=== PATIENT | male | born 1965 | race Caucasian/White ===

== ENCOUNTER 2019-01-15 06:14 | Inpatient (IN) | payer OTHER, MEDICAID, SELFPAY ==
[2019-01-12 12:52] VITALS: BMI 33.2
[2019-01-15] VITALS (22 sets, daily range): BP systolic 63–146; BP diastolic 37–89; PULSE 79–101; RESP 9–18; TEMP 36.1–36.9; O2SAT 92–97; BMI 31.8; BMI 33.5
--- NOTE | 2019-01-15 06:00 | DI.RAD.S_ITS ---
PROCEDURE: XR HIP W PEL IF DONE RT 2V INDICATIONS: removal of MICHAEL and spacer placement TECHNIQUE: AP pelvis with lateral view(s) of the right hip(s). COMPARISON: [facility], CR, XR PELVIS W LATERAL HIP RT, 06/17/2016, 9:34. [facility], CR, HIP 2V RIGHT, 04/15/2009, 12:08. FINDINGS: Bones: Interval removal of right hip arthroplasty components and replacement with acetabular component, new femoral component and cerclage wires. There is a minimally displaced fracture along the lateral femur and extending cranial to the greater tuberosity. Hip components appear congruent. Moderately severe arthritic changes seen in the left hip. Soft tissues: The visualized bowel gas pattern is normal. No suspicious soft tissue calcifications. Overlying skin gwen in particular drain are present. IMPRESSION: 1. Postsurgical changes in the right hip. 2. Minimally displaced lateral proximal femoral fracture. 3. Moderate to severe left hip osteoarthritis. Dictated by: Myrna Salgado M.D. on 01/15/2019 at 18:16 Approved by: Myrna Salgado M.D. on 01/15/2019 at 18:18
[2019-01-15] MEDS: LACTATED RINGERS 1,000 ML 42 ML IV ×6 (07:10→18:02)
[2019-01-15] MEDS: ACETAMINOPHEN 325 MG TABLET 975 MG PO ×2 (07:12→21:07)
[2019-01-15] MEDS: CELECOXIB 200 MG CAPSULE PO (07:12)
[2019-01-15] MEDS: PREGABALIN 75 MG CAPSULE PO (07:13)
[2019-01-15] MEDS: TRANEXAMIC ACID 1,000 MG VIAL 1000 MG INJ ×2 (08:30→16:03)
--- NOTE | 2019-01-15 09:21 | SUR.OPER ---
Lateral on padded OR bed. Gel axillary roll. Arms secured on padded armboard with pillow supporting top arm. Padded hip positioner braces x4 - anterior and posterior chest and pelvis. Additional gel pad used anterior pelvis. Gel pad under bottom leg from knee to foot and secured with tape over sheet.
[2019-01-15] MEDS: POVIDONE-IODINE 15 ML, SODIUM CHLORIDE 0.9% 250 ML TOP (09:40)
[2019-01-15] MEDS: BUPIVACAINE LIPOSOME 266 MG/20 ML VIAL INJ (09:47)
[2019-01-15] MEDS: BUPIVACAINE 0.25% W/ EPI 50 ML VIAL INJ (09:50)
[2019-01-15] MEDS: TOBRAMYCIN 1.2 GM VIAL INTRA-ARTI (10:27)
[2019-01-15] MEDS: VANCOMYCIN 1,000 MG VIAL 1000 MG TOP (10:37)
[2019-01-15] MEDS: CEFAZOLIN 2 GM/100 ML FROZ.PIGGY IV (10:50)
[2019-01-15] MEDS: VANCOMYCIN 1,000 MG/200 ML FROZ.PIGGY 200 MG IV (11:08)
[2019-01-15 11:53] LABS: Hematocrit 40.5 % (41-53); Hemoglobin 13.8 g/dL (13.5-17.5)
--- NOTE | 2019-01-15 17:37 | PM.OP.1 ---
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 He has a history of a total hip arthroplasty which was put in in about 2010. He developed an acute infection in 2016 and had an attempted DAIR procedure. He failed this and recently developed a sinus tract. His x-rays did show evidence of significant heterotopic ossification as well as some osteolysis along the medial femoral calcar. Surgeon: Vesna Jessica [employer] Qtp Tester: Jeana Jeffries Anesthesia Type: General and Spinal Operative Notes Findings: Obvious sinus tract with communication with the prosthesis. Multiple cultures sent. No evidence of loosening of the components. Densely adherent femoral prosthesis to the femur. Infected components removed without significant bone loss. Trochanteric osteotomy performed for removal of components. Good quality bone. Closure Type: primary Specimen(s): other (multiple cultures and PCR) Prosthetic devices, grafts, tissues, transplants, or devices: Biomet antibiotic spacer size 13, 56 mm head, +6 neck, 2 cables Applied: catheter and drain(s) Estimated Blood Loss (mL): 2,000 Blood products transfused: packed red blood cells Procedure in detail: The patient was seen in the pre-operative area, where the patient identified the right hip as the operative site and this was marked with my initials. The patient received pre-operative antibiotics and was taken to the operating room and placed on the operative table in the left lateral decubitus position after satisfactory anesthesia. A motion and time study teacher out was performed. The right leg was prepared from the ankle to the iliac crest with ChloroPrep in the usual fashion and draped through sterile drapes. The hip was approached through an approximately 24 cm incision centered over the greater trochanter and curving gently posteriorly as it went proximally. This was carried sharply to the fascia sidney, which was divided and retracted with a self retaining retractor. The patient had a sinus tract which was meticulously removed. The trochanteric bursa and a very extensive debridement was performed of inflamed and infectious appearing tissue was excised with care being taken to avoid the sciatic nerve, which was identified and protected throughout the case. There was severe heterotopic ossification in the gluteal tissues and in the acetabular region. I meticulously placed retractors around the acetabulum and hip and then carefully removed a significant amount of heterotopic ossification. This allowed visualization of the joint. The hip was dislocated without significant difficulty once the fairly extensive posterior heterotopic ossification had been removed. I also was very specific and meticulous about freeing the lateral shoulder of the hip prosthesis and further fraying the hip abductors in order to allow adequate mobilization and access to the proximal femur for femoral removal. Multiple long osteotomes were used around the proximal femur. I also used multiple Steinmann pins and K-wires to attempt to break the junction of the prosthesis and the femur free from the bone. I was able to thread the extraction device into the proximal femur pretty fairly easily. We then use multiple different extraction devices as well as multiple different mallets in order to attempt to remove the femur. The femur was clearly densely stuck and there was no evidence of loosening. I recheck the proximal femur and used to pass my osteotomes down to about the level of the ingrowth coating and then once again attempted to extract the femur. It was clear that the femur could not be removed without an osteotomy. A combination of an oscillating saw as well as a bur and drill bits were used to prep for a osteotomy. I brought in fluoro briefly to check and make sure that the planned osteotomy was down the stem and distal to the coding in order to make removal possible. Trochanteric osteotomy was performed. There was good visualization of the proximal lateral femur. We used combination of multiple osteotomes as well as oscillating saw to remove bone ingrowth and break up the bone prosthetic junction. The extraction device was reattached and it was clear that the femur could not be removed. Next a Gigli saw was used to go along the medial calcar portion of the prosthesis and I was able to see and use a Gigli saw and actually work it all the way down to about 3-4 mm of the proximal to the end of the ingrowth coating. Once again it was impossible to extract the femur. Next a combination of multiple K-wires Steinmann pins and the oscillating saw as well as multiple flexible osteotomes and some rigid osteotomes were used to further attempt to disrupt the prosthetic femoral interface. After very extensive and very tedious work eventually the prosthesis was removed by forceful pounding and when the prosthesis was examined it was noted that there was essentially no bone loss and no residual bony ingrowth except for about 2-3 mm on the most distal medial matted portion of the prosthesis. Retractors were placed to expose the acetabulum. The explant device was used to remove the acetabulum. There was minimal bone loss and essentially no residual bone remaining on the cup. I did remove a fairly extensive heterotopic ossification around the cup. He did appear to have an adequate residual anterior and posterior rim. I checked the size and it looked appropriate for a 56 mm head. The acetabulum was meticulously debrided removing any potential bio film and I also used a 56 Reamer to just touch the bone to attempt to remove any potentially infected bone or bio film. The femoral canal was reamed up to a 13 and a 13 Biomet broach was placed. It did appear to have adequate initial stability. The stem was reducible with a 56 head. A 13 mm spacer was made on the back table with tobramycin and vancomycin added to the gentamicin cement. Is floor during the procedure to make sure that I had gotten my K-wires distal to the tip of the femoral stem. And confirm that there were no fractures. A small amount of bone cement was placed along the medial calcar when the cemented femoral spacer was implanted. A trial reduction showed adequate caodaism of leg length and reasonable range of motion with 45 degrees internal rotation without dislocation. At 90 degrees flexion, internal rotation to 50 was possible before dislocation. A brief Betadine soak was performed while trialing with head options. Back to sugar was used prior to implanting the components and it was meticulously irrigated clean. The hip was meticulously irrigated with normal saline. Finally the femoral head was impacted onto the stem. The trochanteric osteotomy was meticulously repaired with 2 cables. The capsulomuscular flap was then repaired to soft tissue. A deep drain was placed and brought out anteriorly. The fascia sidney was closed with PDS. The subcutaneous layer was closed with barbed sutures and skin gwen. Any abnormal or nonviable tissue was debrided prior to closure.. A Kiki dressing was applied and the patient was taken to recovery having tolerated the procedure well. He was carefully monitored intraoperatively and given 2 U of packed RBCs. Complications: none Condition: stable Disposition: Acute Care Plan for aftercare: The patient will be maintained on a standard total hip replacement protocol with weight bearing 100 lbs. hip precautions. The patient will receive Aspirin and sequential compression devices for DVT prophylaxis. The patient will be discharged home when safe for the home environment. IV antibiotics for 6 weeks postoperatively. Check cultures and PCR. Coordination with infectious disease Dr. Cooper. Place a PICC line.
--- NOTE | 2019-01-15 17:49 | SUR.PHASEI ---
valuables pack given to
--- NOTE | 2019-01-15 18:02 | SUR.PHASEI ---
Upon arrival bp low, IV fluid increased and phenylephrine given by Dr. Domingo. bp increased. 1736 one ml phenylephrine given for low bp per Dr. Domingo verbal order to give med as needed if sbp drops lower than 90. bp increased 1806 Pt c/o lt eye irritation. Lt eye pink, teary. Eye wiped with wet wash cloth but pt denied improvement. Dr. Pisano notified and examined pt. Pt did express some improvement.
--- NOTE | 2019-01-15 18:30 | SUR.PHASEI ---
Report called to Akila.
--- NOTE | 2019-01-15 18:46 | SUR.PHASEI ---
Pt transferred to the floor with o2. Report to Akila. VS stable. O2 sat 95-96% 1lnc. Drsg cdi. HV drsg cdi but skin pink under drsg. IV saline locked. Bolus comlete. Belongings bag, green bag, cane and glasses with patient.
[2019-01-15] MEDS: LACTATED RINGERS 1,000 ML 125 ML IV (19:45)
[2019-01-15] MEDS: ASPIRIN EC 81 MG TABLET PO (21:07)
[2019-01-15] MEDS: VANCOMYCIN 1,250 MG in SODIUM CHLORIDE 0.9% 250 ML IV (21:07)
[2019-01-15] MEDS: DOCUSATE 100 MG CAPSULE PO (21:07)
--- NOTE | 2019-01-15 22:01 | PC.ADMIT ---
Admission Note: 1834- pt arrived to floor. pt arouses to voice. placed on 1l oxygen. saturation 95-98%. pt has strong moist cough. reports drinks 3-4 beers and 1 mixed drink per night. last time he had a drink was noon 01-14. smokes marijuana and reported last time he had that was also noon on 01-14. discussed this with Md. no new orders. Pt given water and snacks. tolerating well. pt still very sleepy. wendy dressing x2 and hv x2 insertion sites. scs on. pt repositioned in bed. side rails upx2 for pt safety. bed alarm on. pt cooperative but forgets that certain things happened. did speak to pts emergency contact, Sona, pt's aunt. and updated her on everything that was going on. pt and sona both appreciative. will continue to monitor.
[2019-01-16 03:39] VITALS: BP 111/62; PULSE 77; RESP 16; TEMP 37.2; O2SAT 98
[2019-01-16] MEDS: VANCOMYCIN 1,250 MG in SODIUM CHLORIDE 0.9% 250 ML IV (04:16)
[2019-01-16] MEDS: LACTATED RINGERS 1,000 ML 125 ML IV (04:18)
[2019-01-16 06:28] LABS: Hematocrit 32.7 % (41-53); Hemoglobin 10.9 g/dL (13.5-17.5)
[2019-01-16 06:48] LABS: Estimated Glomerular Filt Rate > 60.0 mL/min (>60)
[2019-01-16 07:56] VITALS: BP 111/61; PULSE 79; RESP 18; TEMP 36.8; O2SAT 95
--- NOTE | 2019-01-16 08:00 | PM.PNPO.1 ---
Subjective Date Patient Seen: 01/16/19 Interval history: Patient seen bedside status post removal of right hip prosthesis with placement of antibiotic spacer postop day 1. Hemoglobin is currently stable and denies chest pain, shortness of breath, and nausea/vomiting. Intraoperative cultures are pending, but Dr. Cooper from infectious disease was consulted and recommended ertapenem 1 g q24h and daptomycin 750 mg q24h for treatment. Exam Vital Signs (past 8 hours): - 01/16/19 03:39 Temperature 99.0 F Pulse Rate 77 Respiratory Rate 16 Blood Pressure 111/62 Pulse Oximetry 98 Oxygen Delivery Method Nasal Cannula Oxygen Flow Rate 1 Narrative Exam Narrative: Well-developed, well-nourished, no acute distress. Alert and oriented to person, place, and time. Dressing on operative hip is clean, dry, and intact with no signs of drainage. Minimal erythema and generalized swelling around the surgical site. Neurovascularly intact in the operative extremity with a soft and compressible calf. Range of motion of the operative ankle intact. Objective Labs Result Diagrams: 01/16/19 05:52 01/16/19 05:50 Labs: Laboratory Results - last 24 hr 01/15/19 01/15/19 01/16/19 Unknown Unknown 05:50 Hgb 13.8 Hct 40.5 L Creatinine 0.90 Estimated GFR > 60.0 Blood Type O Positive Antibody Screen Negative Crossmatch See Detail 01/16/19 05:52 Hgb 10.9 L Hct 32.7 L Creatinine Estimated GFR Blood Type Antibody Screen Crossmatch Assessment & Plan Post-op Postoperative Procedures Operation Date: 01/15/19 07:45 Actual Procedures Side Surgeon p Total Hip Arthroplasty Revision Right Vesna Jessica MD 1. Postop day 1 s/p above procedure- physical therapy with weight-bearing limited to 100 lb on right leg, pain control, IV antibiotics until cultures come back. Patient will need a PICC line for safety instruction police officer antibiotic treatment. Dispo-pending culture results and correction antibiotic set up. Quality VTE Deep Vein Thrombosis/Pulmonary Embolism Present on Admission: No
--- NOTE | 2019-01-16 08:39 | P.PN_ITS ---
Subjective Date Patient Seen: 01/16/19 Interval history: Patient seen bedside status post removal of right hip pros thesis with placement of antibiotic spacer postop day 1. Hemoglobin is currently stable and denies chest pain, shortness of breath, and nausea/vomiting. Intraoperative cultures are pending, but Dr. Cooper from infectious disease was consulted and recommended ertapenem 1 g q24h and daptomycin 750 mg q24h for treatment. Exam Vital Signs (past 8 hours): - 01/16/19 03:39 Temperature 99.0 F Pulse Rate 77 Respiratory Rate 16 Blood Pressure 111/62 Pulse Oximetry 98 Oxygen Delivery Method Nasal Cannula Oxygen Flow Rate 1 Narrative Exam Narrative: Well-developed, well-nourished, no acute distress. Alert and oriented to person, place, and time. Dressing on operative hip is clean, dry, and intact with no signs of drainage. Minimal erythema and generalized swelling around the surgical site. Neurovascularly intact in the operative extremity with a soft and compressible calf. Range of motion of the operative ankle intact. Objective Labs Result Diagrams: 01/16/19 05:52 01/16/19 05:50 Labs: Laboratory Results - last 24 hr 01/15/19 01/15/19 01/16/19 Unknown Unknown 05:50 Hgb 13.8 Hct 40.5 L Creatinine 0.90 Estimated GFR > 60.0 Blood Type O Positive Antibody Screen Negative Crossmatch See Detail 01/16/19 05:52 Hgb 10.9 L Hct 32.7 L Creatinine Estimated GFR Blood Type Antibody Screen Crossmatch Assessment & Plan Post-op Postoperative Procedures Operation Date: 01/15/19 07:45 Actual Procedures Side Surgeon p Total Hip Arthroplasty Revision Right Vesna Jessica MD 1. Postop day 1 s/p above procedure- physical therapy with weight-bearing limited to 100 lb on right leg, pain control, IV antibiotics until cultures come back. Patient will need a PICC line for roasterman antibiotic treatment. Dispo-pending culture results and retirement antibiotic set up. Quality VTE Deep Vein Thrombosis/Pulmonary Embolism Present on Admission: No
[2019-01-16] MEDS: ASPIRIN EC 81 MG TABLET PO ×2 (09:23→20:09)
[2019-01-16] MEDS: OXYCODONE IR 5 MG TABLET PO ×4 (09:23→22:17)
[2019-01-16] MEDS: DOCUSATE 100 MG CAPSULE PO ×2 (09:23→20:09)
[2019-01-16] MEDS: ACETAMINOPHEN 325 MG TABLET 975 MG PO ×3 (09:23→20:09)
[2019-01-16] MEDS: ERTAPENEM 1 GM in SODIUM CHLORIDE 0.9% 100 ML 200 ML IV (11:08)
[2019-01-16 11:13] VITALS: BP 113/59; PULSE 68; RESP 18; TEMP 36.9; O2SAT 96
--- NOTE | 2019-01-16 11:15 | PT.IIE ---
Current Diagnoses Unspecified infectious disease (01/15/19) Mechanical loosening of other internal prosthetic joint, initial encounter (01/15/19) Presence of right artificial hip joint (01/15/19) Surgery Performed Operation Date: 01/15/19 07:45 Actual Procedures p Total Hip Arthroplasty Revision(Right) - Vesna Jessica MD Surgical History (Last Updated 01/12/19 @ 13:12 by Isabela Crawley RN) History of incision and drainage (Acute ~2016) History of total right hip arthroplasty (Acute 03/18/11) Hx of hand surgery (Acute) Hx of tonsillectomy (Acute) Medical History (Last Updated 01/12/19 @ 13:15 by Isabela Crawley RN) 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 ramp in garage, 2 JORDAN at front door without rail Home Equipment Front Wheel Walker Four Wheel Walker Straight Cane Additional Social History Comment works at [employer] M2 PT-IP Current Condition Start: 01/16/19 17:19 Freq: NEEDED Status: Active Protocol: Document 01/16/19 11:15 DLM (Rec: 01/16/19 17:34 DLM [email or web address]) Physical Therapy Current Condition Current Condition Evaluation Date 01/16/19 Treatment Diagnosis 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, impaired gt Onset Date 01/15/19 Precautions Posterior Hip Precautions No Hip Flexion > 90 degrees No Hip Internal Rotation No Hip Adduction Other Precautions crunching sounds in right hip with any movement, Dr Jessica is aware Weight Bearing Status Weight Bearing Status Partial Weight Bearing Allowed Weight Bearing Amount (enter % 100# or #) (%) M3 PT-IP Subjective Start: 01/16/19 17:19 Freq: NEEDED Status: Active Protocol: Document 01/16/19 11:15 DLM (Rec: 01/16/19 17:34 DLM [email or web address]) Subjective Physical Therapy Visit Type Type Initial Evaluation Visit Start Time 10:40 Visit Stop Time 11:15 Total Visit Minutes 35 Number of PRESSER AND [employer]ITTED GOODS Visits 0 Physical Therapy Visit Comments Patient Comments He can not use his right LE Patient Goals He wants to be able to go home Therapy Pain Assessment Pain When Pain Assessed After Treatment Pain Present Pain Present Pain Reported Location Right Hip Intensity 6 Scale Used Numeric (1 - 10) Description Aching Pain Behaviors Wincing Pain Management Techniques Re-positioning M4 PT-IP Mobility and Gait Start: 01/16/19 17:19 Freq: NEEDED Status: Active Protocol: Document 01/16/19 11:15 DLM (Rec: 01/16/19 17:34 DL [email or web address]) PT-Bed Mobility Assessment Supine to Sit Supine to Sit Minimal Assistance Moderate Assistance Sit to Supine Sit to Supine Minimal Assistance Scooting Scooting to Edge of Bed Standby Assistance PT-Transfer Assessment Sit to and From Stand Sit to and from Stand Minimal Assistance Use of Upper Extremities Equipment Transfer Assistive Device Gait Belt Front Wheeled Walker Transfers Transfer Destination Chair Transfer Technique Stand Step Pivot Transfer Ability Level of Assist Minimal Assistance Use of Upper Extremities Gait Assessment Gait Gait Assistance Required: Minimum Assistance Distance (Feet) 3 Able to Maintain Weight Bearing Status Yes During Gait Assistive Devices Assistive Device Gait Belt Front Wheeled Walker Gait Deviations General Gait Pattern Antalgic Decreased Stride Length Factors Limiting Gait Function Factors Limiting Gait Function Decreased Activity Tolerance Decreased Strength Limited Range of Motion Pain Comments Gait Comments pt up to recliner this visit PT-Balance Assessment Sitting Balance and Reactions Static Sitting Balance Ability Good Dynamic Sitting Balance Ability Good Standing Balance and Reactions Static Standing Balance Ability Fair Dynamic Standing Balance Ability Fair Device Used FWW M5 PT-IP Objective Assessments Start: 01/16/19 17:19 Freq: NEEDED Status: Active Protocol: Document 01/16/19 11:15 DLM (Rec: 01/16/19 17:34 DLM [email or web address]) Orientation Orientation/Cognition Level of Alertness Alert Orientation Name Age Birthday Month Date Year Day of Week Place Situation Language Function Ability No Deficits Noted Safety Awareness Understands Safety Issues Memory Description No Deficits Noted Comments decreased awareness of the jail plan for his hip, difficulty understanding why he can not use his hip like after his first MICHAEL Gross Range of Motion Upper Extremity ROM Assessment Within Functional Limits Lower Extremity ROM Assessment Right Impaired Impairments post-op restrictions and pain, crepitus like noises with any ROM right hip Strength Upper Extremity Strength Assessment Within Functional Limits Lower Extremity Strength Assessment Right Impaired Hip needs assist to move due to pain Knee knee ext 2+/5 Ankle DF 4+/5 Comments Strength Comments pain limits functional strenght right LE, hx left patellofemoral dysfunction Coordination Assessment Gross Coordination Gross Coordination WNL Sensation Assessment Sensation Gross Sensation WNL Comments Sensation Comments no numbness reported this visit Muscle Tone Muscle Tone WNL Yes M6 PT-IP Treatment Start: 01/16/19 17:19 Freq: NEEDED Status: Active Protocol: Document 01/16/19 11:15 DLM (Rec: 01/16/19 17:34 DLM [email or web address]) Physical Therapy Treatment Exercises Exercises Ankle Pumps Education Education Provided Precautions Weight Bearing Status Safety M7 PT-IP Assessment and Plan Start: 01/16/19 17:19 Freq: NEEDED Status: Active Protocol: Document 01/16/19 11:15 DLM (Rec: 01/16/19 17:34 DLM [email or web address]) PT Summary Assessment and Plan Potential Rehabilitation Potential Good Status of Condition at Evaluation Evolving Summary Impairments Pain ROM Strength Balance Bed Mobility Transfers Gait Activity Tolerance Assessment Summary Santino is alert and willing to participate in physical therapy at this time. He c/o increased right hip pain with all activity. He had fair tolerance for activity this visit. He is motivated to return home but he reports limited assistance at home. He may needs SNF rehab before returning home. Will continue to asses for discharge planning as he progresses. Goals Bed Mobility Goal Independent Transfer Goal Independent Front Wheeled Walker Gait Goal Independent Front Wheel Walker Gait Distance 100 feet Other Goals Demonstrate post hip precautions during mobility Days to Meet Goals 5 Frequency of Treatment Frequency Of Treatment Twice a Day Treatment Plan Physical Therapy Treatment Plan Bed Mobility Training Transfer Training Gait Training Therapeutic Exercise Post Op Education Discharge Planning Hot or Cold Pack Recommendations To Nursing Amount of Assist Needed 1 Person Assist Discharge Recommendations PT Discharge Recommendations SNF Rehab Other Discharge Recommendations Pt wants home
--- NOTE | 2019-01-16 11:58 | PC.NURSE ---
Pt attempted to get up with PT and was only able to stand a bear a small amount of weight on his r.leg. Dressings present x2, both picco and wnl.. Pt also has a hemovac putting out bloody drainage. His antibiotics have been changed from Vancomycin. First up and infusing. Back to bed and lying on his back. Given 1 percolone earlier and helpful.
[2019-01-16] MEDS: DAPTOmycin 750 MG in SODIUM CHLORIDE 0.9% 50 ML 100 ML IV (12:50)
[2019-01-16 15:15] VITALS: BP 128/65; PULSE 81; RESP 18; TEMP 37.4; O2SAT 94
--- NOTE | 2019-01-16 15:32 | CM.DANOTE ---
DCP/Assessment: Reviewed chart. Patient admitted to . with infected right total hip. Patient underwent right hip revision with placement of abx spacer on 01-15-[address] Jessica. Patient reports no active PCP. Primary payor is 1)[employer] 2)Medicaid. Met with patient explained CM/SW role. Spoke with Ortho/PA current plan is for patient to d/c with long-term IV abx. PICC line expected to be placed on 01-18. Cultures currently pending to determine specific abx and duration. Patient alert and oriented during assessment but appears very flat. Patient reports that he resides alone and plans to go home when medically stable. Patient refuses SNF but agreeable to home health. Spoke with therapy and RN both indicate patient requiring a lot of assistance with mobilizing secondary to the removal of previous hip replacement. At this time current recommendation is SNF however, patient refuses. Therefore, hopefully patient will improve enough physically over the next few days to go home? Awaiting orders for IV abx to send to [facility] for approval from [email or web address]. P: Pending. Patient wants to go home with IV abx when medically stable. SWETHA Mata Discharge Planning/Care Management CM Discharge Assessment Start: 01/16/19 15:23 Freq: Status: Active Protocol: Document 01/16/19 15:24 KJS (Rec: 01/16/19 15:32 KJS [id number]) Discharge Planning Assessment Assigned Ladle Operator SWETHA Mata Contact Information No one named Advance Directives? No History Provided By Patient Medical Record Prior Living Arrangements House Household Members none Type of transporation used prior to Drives own vehicle admit Independent with ADL's Yes Is patient alert and oriented? Yes Caregiver for Another No DME Already Rented / Owned FWW / Walker Cane Patient/Family Preference Home with Home Health Barriers to Discharge Yes Comment Pending patient's ability to care for himself at home Discharge Plan Home Community Services Physical Therapy IV Therapy Whiteboard Updated in Patient Room with Yes name and ext. # of Ladle Operator Review Status In Process Please Provide Date Initial DC 01/16/19 Assessment Was Performed Next Review Type Continued Stay Review Pre-Anesthesia Assessment Start: 01/12/19 12:52 Freq: Status: Complete Protocol: Document 01/12/19 12:52 CAB (Rec: 01/12/19 13:45 CAB [id number]) Pre-Anesthesia Assessment Patient Information Reviewed Via On-site Review Assessment Completed With Patient Diagnostic Results BMP/CMP CBC EKG Comment Outside labs/ECG 01/04/19 scanned to record Primary Care Provider n/a Seen Specialist in Last 12 Months Yes Specialist Seen Orthopedist Other Comment Infectious Disease Primary Language Urdu Ups Driver Required No Height 180.34 cm Weight 107.955 kg Body Mass Index (BMI) 33.2 Visual Impairment No Limitations Visual Assist Glasses Dentition Type Teeth, Natural Present Teeth, Missing Barriers to Learning None Hx Anesthesia Reactions No Hx Family Anesthesia Reaction No Hx Malignant Hyperthermia No Hx Blood Transfusions No Anesthesia Review Requested Yes: PAC Courtesy re: Abnormal pre-op ECG Brick Setter No alcohol intake current alcohol intake frequency 3 or more drinks per day Smoking Status Current every day smoker Tobacco type smokeless tobacco Substance Use Type marijuana Comment Advised pt not to smoke marijuana 24 hours prior to surgery Musculoskeletal Symptoms Joint Pain History of Falling (Recent or History of No ) Patient is completely paralyzed or No completely immobile Mental Status Oriented to own ability Is patient on oxygen? No Does patient have ALARCON/SOB No Hx Sleep Apnea No Currently Taking a Beta Trae No Can You Climb a Flight of Stairs Without Yes SOB Hx Chest Pain No Hx SOB No Hx Syncope or Dizziness No Anti-Coagulant Therapy No Has a Floor Layer Apprentice No Cardiac Testing No Hx Pacemaker/ICD No Pacemaker Rep Required? 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 in the last 30 days? Marital Status Single Lives With none Prior Living Arrangements House Number of Floors (Floors) One Floor Support System None Patient Discharge Plan Description Return Home Comment Pt advised 4 day length of stay per surgeon's office Feels Safe in Current Environment Yes Been Physically Hurt or Threatened By a No Person in Current Environment Do you have thoughts of harming yourself None or others? Are you currently considering suicide? No Do you have a plan to hurt yourself or No Plan others? Do You Have Any Spiritual Beliefs That No May Affect Your HC Choices? Do You Have Any Cultural Practices That No May Affect Your HC Choices? Spiritual Referral None Who Can We Speak to About Patient's Care Family, friends Identifying Code for Release of Patient [place]cines to issue Information Health Care Proxy/Next of Kin Sona Lee (Aunt) Health Care Proxy Phone Number Pt to update number dos Emergency Contact Name Sona Lee (Aunt) Emergency Contact Phone Number Pt to update number dos Advance Directives? No: Information given to patient PAC Instructions Durable medical equipment Medications to take/avoid Nasal antibiotic No ETOH/petroleum product on skin DOS NPO Post-op transportation Pre-surgical wash Sensory aids Sturdy shoes/comfortable clothes Do not bring valuables and remove jewelry
--- NOTE | 2019-01-16 16:14 | PT.IPTN ---
Current Diagnoses Unspecified infectious disease (01/15/19) Mechanical loosening of other internal prosthetic joint, initial encounter (01/15/19) Presence of right artificial hip joint (01/15/19) Surgery Performed Operation Date: 01/15/19 07:45 Actual Procedures p Total Hip Arthroplasty Revision(Right) - Vesna Jessica MD Physical Therapy Treatment Note M2 PT-IP Current Condition Start: 01/16/19 17:19 Freq: NEEDED Status: Active Protocol: Document 01/16/19 11:15 DLM (Rec: 01/16/19 17:34 DLM [email or web address]) Physical Therapy Current Condition Current Condition Evaluation Date 01/16/19 Treatment Diagnosis 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, impaired gt Onset Date 01/15/19 Precautions Posterior Hip Precautions No Hip Flexion > 90 degrees No Hip Internal Rotation No Hip Adduction Other Precautions crunching sounds in right hip with any movement, Dr Jessica is aware Weight Bearing Status Weight Bearing Status Partial Weight Bearing Allowed Weight Bearing Amount (enter % 100# or #) (%) M3 PT-IP Subjective Start: 01/16/19 17:19 Freq: NEEDED Status: Active Protocol: Document 01/16/19 16:14 DLM (Rec: 01/16/19 17:35 DLM [id number]) Subjective Physical Therapy Visit Type Type Patient Refusal Notes he verbalizes frustration with inability to use his right LE today Physical Therapy Visit Comments Patient Comments I can not do it M
[2019-01-16 19:40] VITALS: BP 118/58; PULSE 77; RESP 18; TEMP 37.3; O2SAT 91
[2019-01-16 20:01] LABS: Vancomycin Trough 9.1 ug/mL (10-20)
[2019-01-16] MEDS: VANCOMYCIN TROUGH 1 REQUEST MISC (20:34)
[2019-01-17 00:23] VITALS: BP 116/56; PULSE 75; RESP 17; TEMP 37.2; O2SAT 92
--- NOTE | 2019-01-17 01:42 | PC.NURSE ---
Shift note: Received pt from evening shift. During assessment pt's responses were very clipped and appeared to be very angry with his current post-op status and when asked to move right leg, pt's response was I can't! and refused to attempt. Pedal pulse and cap refill both WNL and no edema. YOUNG monitors were both flashing orange on air leak, attempted to assess dressing and cycle pumps but pt was not cooperative with assessment and was unable to assess bottom of leg dressing and would not be amenable to changing YOUNG dressings at this time. On evening shift, pt refused care r/t incentive spirometry, coughing, and deep breathing, lungs were notable on assessment for rhonchi both inspiratory and expiratory.
[2019-01-17 08:00] VITALS: BP 142/71; PULSE 88; RESP 18; TEMP 36.4; O2SAT 93
[2019-01-17] MEDS: OXYCODONE IR 5 MG TABLET PO ×2 (08:59→18:14)
[2019-01-17] MEDS: ACETAMINOPHEN 325 MG TABLET 975 MG PO ×2 (09:00→15:04)
[2019-01-17] MEDS: ASPIRIN EC 81 MG TABLET PO (09:00)
[2019-01-17] MEDS: DOCUSATE 100 MG CAPSULE PO (09:00)
--- NOTE | 2019-01-17 09:35 | PT.IPTN ---
Current Diagnoses Unspecified infectious disease (01/15/19) Mechanical loosening of other internal prosthetic joint, initial encounter (01/15/19) Presence of right artificial hip joint (01/15/19) Surgery Performed Operation Date: 01/15/19 07:45 Actual Procedures p Total Hip Arthroplasty Revision(Right) - Vesna Jessica MD Physical Therapy Treatment Note M2 PT-IP Current Condition Start: 01/16/19 17:19 Freq: NEEDED Status: Active Protocol: Document 01/16/19 11:15 DLM (Rec: 01/16/19 17:34 DLM [email or web address]) Physical Therapy Current Condition Current Condition Evaluation Date 01/16/19 Treatment Diagnosis 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, impaired gt Onset Date 01/15/19 Precautions Posterior Hip Precautions No Hip Flexion > 90 degrees No Hip Internal Rotation No Hip Adduction Other Precautions crunching sounds in right hip with any movement, Dr Jessica is aware Weight Bearing Status Weight Bearing Status Partial Weight Bearing Allowed Weight Bearing Amount (enter % 100# or #) (%) M3 PT-IP Subjective Start: 01/16/19 17:19 Freq: NEEDED Status: Active Protocol: Document 01/17/19 09:35 DLM (Rec: 01/17/19 12:24 DLM [id number]) Subjective Physical Therapy Visit Type Type Treatment Note Visit Start Time 09:00 Visit Stop Time 09:35 Total Visit Minutes 35 Number of ACTIONSCRIPT DEVELOPER Visits 0 Physical Therapy Visit Comments Patient Comments He is very worried about how he will be able to manage at home, does not feel he can use right LE, he does not want to go to SNF rehab Patient Goals he wants to go home Therapy Pain Assessment Pain When Pain Assessed After Treatment Pain Present Pain Present Pain Reported Location Right Hip Intensity 6 Scale Used Numeric (1 - 10) Description Aching Pain Behaviors Facial Grimacing Guarding Wincing Pain Management Techniques Apply Cold Re-positioning Timing of Activity with Medications M4 PT-IP Mobility and Gait Start: 01/16/19 17:19 Freq: NEEDED Status: Active Protocol: Document 01/17/19 09:35 DLM (Rec: 01/17/19 12:24 DLM [id number]) PT-Bed Mobility Assessment Supine to Sit Supine to Sit Minimal Assistance Moderate Assistance Sit to Supine Sit to Supine Minimal Assistance Scooting Scooting to Edge of Bed Standby Assistance PT-Transfer Assessment Sit to and From Stand Sit to and from Stand Minimal Assistance Use of Upper Extremities Equipment Transfer Assistive Device Gait Belt Front Wheeled Walker Transfers Transfer Destination Bedside Commode Transfer Technique Stand Step Pivot Transfer Ability Level of Assist Contact Guard Assistance Minimal Assistance Use of Upper Extremities Comments Mobility Comments pt up to bedside commode for BM, he declined to stay up in recliner, he returned to bed after gait, severe crepitus right hip with any movement of his hip, c/o increased pain getting in/out of bed Gait Assessment Gait Gait Assistance Required: Contact Guard Assist Minimum Assistance Distance (Feet) 50 Able to Maintain Weight Bearing Status Yes During Gait Assistive Devices Assistive Device Gait Belt Front Wheeled Walker Gait Deviations General Gait Pattern Antalgic Decreased Stride Length Factors Limiting Gait Function Factors Limiting Gait Function Decreased Activity Tolerance Decreased Strength Pain Comments Gait Comments he needs verbal cues to slow down during gait PT-Balance Assessment Sitting Balance and Reactions Static Sitting Balance Ability Good Dynamic Sitting Balance Ability Good Standing Balance and Reactions Static Standing Balance Ability Good Dynamic Standing Balance Ability Fair Device Used FWW M5 PT-IP Objective Assessments Start: 01/16/19 17:19 Freq: NEEDED Status: Active Protocol: Document 01/16/19 11:15 DLM (Rec: 01/16/19 17:34 DLM [email or web address]) Orientation Orientation/Cognition Level of Alertness Alert Orientation Name Age Birthday Month Date Year Day of Week Place Situation Language Function Ability No Deficits Noted Safety Awareness Understands Safety Issues Memory Description No Deficits Noted Comments decreased awareness of the lobsterman plan for his hip, difficulty understanding why he can not use his hip like after his first MICHAEL Gross Range of Motion Upper Extremity ROM Assessment Within Functional Limits Lower Extremity ROM Assessment Right Impaired Impairments post-op restrictions and pain, crepitus like noises with any ROM right hip Strength Upper Extremity Strength Assessment Within Functional Limits Lower Extremity Strength Assessment Right Impaired Hip needs assist to move due to pain Knee knee ext 2+/5 Ankle DF 4+/5 Comments Strength Comments pain limits functional strenght right LE, hx left patellofemoral dysfunction Coordination Assessment Gross Coordination Gross Coordination WNL Sensation Assessment Sensation Gross Sensation WNL Comments Sensation Comments no numbness reported this visit Muscle Tone Muscle Tone WNL Yes M6 PT-IP Treatment Start: 01/16/19 17:19 Freq: NEEDED Status: Active Protocol: Document 01/17/19 09:35 DLM (Rec: 01/17/19 12:24 DLM [id number]) Physical Therapy Treatment Exercises Exercises Ankle Pumps Gluteal Sets Quad Sets Education Education Provided Precautions Weight Bearing Status Safety M7 PT-IP Assessment and Plan Start: 01/16/19 17:19 Freq: NEEDED Status: Active Protocol: Document 01/17/19 09:35 DLM (Rec: 01/17/19 12:24 DL [id number]) PT Summary Assessment and Plan Summary Impairments Pain ROM Strength Balance Bed Mobility Transfers Gait Activity Tolerance Progress Towards Goals Slow Progress due to Pain Slow Progress due to Activity Tolerance Assessment Summary Santino is alert and willing to participate in physical therapy. He continues to verbalize frustration with difficulty using right LE. He was able to increase his distance of gait this visit. He can maintain his partial weight bearing status. He is having the most pain getting in/out of bed today. He could benefit from SNF rehab at discharge. Pt does not want to go to rehab . He wants to go home. If he goes home I recommend he have home health therapy. Goals Bed Mobility Goal Independent Transfer Goal Independent Front Wheeled Walker Gait Goal Independent Front Wheel Walker Gait Distance 100 feet Other Goals Demonstrate post hip precautions during mobility Days to Meet Goals 5 Frequency of Treatment Frequency Of Treatment Twice a Day Treatment Plan Physical Therapy Treatment Plan Bed Mobility Training Transfer Training Gait Training Therapeutic Exercise Post Op Education Discharge Planning Hot or Cold Pack Recommendations To Nursing Amount of Assist Needed 1 Person Assist Discharge Recommendations PT Discharge Recommendations SNF Rehab Other Discharge Recommendations Pt wants home
[2019-01-17] MEDS: ERTAPENEM 1 GM in SODIUM CHLORIDE 0.9% 100 ML 200 ML IV (10:31)
--- NOTE | 2019-01-17 11:03 | PM.PNPO.1 ---
Subjective Date Patient Seen: 01/17/19 Time Patient Seen: 11:03 Interval history: Patient status post removal of previous total hip arthroplasty with placement of antibiotic spacer. Patient is still having pain to the hip but does state it is better than what it was yesterday. Has been able to get up with physical therapy but unable to really ambulate very much. Exam Vital Signs (past 8 hours): - 01/17/19 08:00 Temperature 97.6 F Pulse Rate 88 Respiratory Rate 18 Blood Pressure 142/71 H Pulse Oximetry 93 Oxygen Delivery Method Nasal Cannula Oxygen Flow Rate 0 Narrative Exam Narrative: On physical exam, patient is alert and oriented x3. No apparent distress. Patient's dressing is clean dry and intact. He has got positive dorsiflexion and plantar flexion of the toes and ankle. 5/5 strength in ankle dorsiflexion and plantar flexion. Nontender to palpation to the posterior aspect of the calves bilaterally. Palpable pedal pulses. Brisk cap refill. Objective Labs Result Diagrams: 01/16/19 05:52 01/16/19 05:50 Labs: Laboratory Results - last 24 hr 01/16/19 18:30 Vancomycin Trough 9.1 L Assessment & Plan Post-op Postoperative Procedures Operation Date: 01/15/19 07:45 Actual Procedures Side Surgeon p Total Hip Arthroplasty Revision Right Vesna Jessica MD Postoperative day: 2 Postoperative status: doing well Postoperative status narrative: Patient is status post total hip revision with placement of antibiotic spacer. Patient's culture results are negative so far but final results are still pending. No growth at the moment. Patient will eventually most likely need home IV antibiotics. We will need to wait for final culture results. Postoperative plan: routine post-op care Time Spent With Patient less than 15 minutes Quality VTE Deep Vein Thrombosis/Pulmonary Embolism Present on Admission: No
[2019-01-17] MEDS: DAPTOmycin 750 MG in SODIUM CHLORIDE 0.9% 50 ML 100 ML IV (11:45)
[2019-01-17 12:00] VITALS: BP 137/63; PULSE 88; RESP 18; TEMP 36.6; O2SAT 93
--- NOTE | 2019-01-17 15:11 | PC.NURSE ---
Dr Jessica called around 1330 and states that we should attempt to change Pts picco dressing with a new one, take the old ones off. If this does not work then PA will need to change it in the morning. This RN Had pt roll over to his left side with the help of PT. Dressing applied and reinforced with long strands of tape. O leaks noted. Plugged into little motor for suction and this did not work. Pt unable to stay on side anymore, not tolerating well. He rolled back on his back side and is now more comfortable. One Picco drain almost long enough to fit but a small amount of incision to distal end of incision exposed. Covered with Tegaderm tape and dressing still not functioning correctly. PA will changed in the am.
[2019-01-17 15:20] VITALS: BP 123/65; PULSE 77; RESP 18; TEMP 37.2; O2SAT 95
--- NOTE | 2019-01-17 16:30 | PT.IPTN ---
Current Diagnoses Unspecified infectious disease (01/15/19) Mechanical loosening of other internal prosthetic joint, initial encounter (01/15/19) Presence of right artificial hip joint (01/15/19) Surgery Performed Operation Date: 01/15/19 07:45 Actual Procedures p Total Hip Arthroplasty Revision(Right) - Vesna Jessica MD Physical Therapy Treatment Note M2 PT-IP Current Condition Start: 01/16/19 17:19 Freq: NEEDED Status: Active Protocol: Document 01/16/19 11:15 DLM (Rec: 01/16/19 17:34 DLM [email or web address]) Physical Therapy Current Condition Current Condition Evaluation Date 01/16/19 Treatment Diagnosis 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, impaired gt Onset Date 01/15/19 Precautions Posterior Hip Precautions No Hip Flexion > 90 degrees No Hip Internal Rotation No Hip Adduction Other Precautions crunching sounds in right hip with any movement, Dr Jessica is aware Weight Bearing Status Weight Bearing Status Partial Weight Bearing Allowed Weight Bearing Amount (enter % 100# or #) (%) M3 PT-IP Subjective Start: 01/16/19 17:19 Freq: NEEDED Status: Active Protocol: Document 01/17/19 16:30 DLM (Rec: 01/17/19 17:14 DLM [id number]) Subjective Physical Therapy Visit Type Type Treatment Note Visit Start Time 16:00 Visit Stop Time 16:30 Total Visit Minutes 30 Number of MOLECULAR BIOLOGY PROFESSOR Visits 0 Physical Therapy Visit Comments Patient Comments He does not want to go to SNF. He is very worried about being able to manage his right hip at home. His Friends have agreed to take the dogs. He is talking to friends about getting extra help at home but not sure if it will be enough . Therapy Pain Assessment Pain When Pain Assessed After Treatment Pain Present Pain Present Pain Reported Location Right Hip Intensity 2 Scale Used Numeric (1 - 10) Description Aching Tender Pain Management Techniques Apply Cold Re-positioning M4 PT-IP Mobility and Gait Start: 01/16/19 17:19 Freq: NEEDED Status: Active Protocol: Document 01/17/19 16:30 DLM (Rec: 01/17/19 17:14 DLM [id number]) PT-Bed Mobility Assessment Rolling Type of Rolling Roll to Left Level of Assist Moderate Assistance Supine to Sit Supine to Sit Moderate Assistance Sit to Supine Sit to Supine Minimal Assistance Scooting Scooting to Edge of Bed Standby Assistance PT-Transfer Assessment Sit to and From Stand Sit to and from Stand Minimal Assistance Use of Upper Extremities Equipment Transfer Assistive Device Gait Belt Front Wheeled Walker Transfers Transfer Destination Bed Transfer Technique Stand Step Pivot Transfer Ability Level of Assist Contact Guard Assistance Use of Upper Extremities Comments Mobility Comments pt rolled to left for dressing change, assisted pt with keeping his right LE in neutral and help manage his pain, nursing addressing issues with YOUNG dressing, hemovac in place Gait Assessment Gait Gait Assistance Required: Contact Guard Assist Distance (Feet) 60 Able to Maintain Weight Bearing Status Yes During Gait Assistive Devices Assistive Device Gait Belt Front Wheeled Walker Gait Deviations General Gait Pattern Antalgic Decreased Stride Length Factors Limiting Gait Function Factors Limiting Gait Function Decreased Activity Tolerance Decreased Strength Pain PT-Balance Assessment Sitting Balance and Reactions Static Sitting Balance Ability Good Dynamic Sitting Balance Ability Good Standing Balance and Reactions Static Standing Balance Ability Good Dynamic Standing Balance Ability Fair Device Used fWW M5 PT-IP Objective Assessments Start: 01/16/19 17:19 Freq: NEEDED Status: Active Protocol: Document 01/16/19 11:15 DLM (Rec: 01/16/19 17:34 DLM [email or web address]) Orientation Orientation/Cognition Level of Alertness Alert Orientation Name Age Birthday Month Date Year Day of Week Place Situation Language Function Ability No Deficits Noted Safety Awareness Understands Safety Issues Memory Description No Deficits Noted Comments decreased awareness of the longterm plan for his hip, difficulty understanding why he can not use his hip like after his first MICHAEL Gross Range of Motion Upper Extremity ROM Assessment Within Functional Limits Lower Extremity ROM Assessment Right Impaired Impairments post-op restrictions and pain, crepitus like noises with any ROM right hip Strength Upper Extremity Strength Assessment Within Functional Limits Lower Extremity Strength Assessment Right Impaired Hip needs assist to move due to pain Knee knee ext 2+/5 Ankle DF 4+/5 Comments Strength Comments pain limits functional strenght right LE, hx left patellofemoral dysfunction Coordination Assessment Gross Coordination Gross Coordination WNL Sensation Assessment Sensation Gross Sensation WNL Comments Sensation Comments no numbness reported this visit Muscle Tone Muscle Tone WNL Yes M6 PT-IP Treatment Start: 01/16/19 17:19 Freq: NEEDED Status: Active Protocol: Document 01/17/19 16:30 DLM (Rec: 01/17/19 17:14 DLM [id number]) Physical Therapy Treatment Exercises Exercises Ankle Pumps Education Education Provided Precautions Weight Bearing Status Safety Other Treatments Other Treatment Performed verbal cues during mobility for post hip precautions, educated pt in compensations including moving more from pelvis and minimizing right hip motions during bed mobility to better manage his pain and severe crepitus, he continues to have severe crepitus in right hip with all hip motions M7 PT-IP Assessment and Plan Start: 01/16/19 17:19 Freq: NEEDED Status: Active Protocol: Document 01/17/19 16:30 DLM (Rec: 01/17/19 17:14 DLM [id number]) PT Summary Assessment and Plan Summary Impairments Pain ROM Strength Balance Bed Mobility Transfers Gait Activity Tolerance Progress Towards Goals Slow Progress due to Pain Slow Progress due to Activity Tolerance Goals Bed Mobility Goal Independent Transfer Goal Independent Front Wheeled Walker Gait Goal Independent Front Wheel Walker Gait Distance 100 feet Other Goals Demonstrate post hip precautions during mobility Days to Meet Goals 5 Frequency of Treatment Frequency Of Treatment Twice a Day Treatment Plan Physical Therapy Treatment Plan Bed Mobility Training Transfer Training Gait Training Therapeutic Exercise Post Op Education Discharge Planning Hot or Cold Pack Recommendations To Nursing Amount of Assist Needed 1 Person Assist Discharge Recommendations PT Discharge Recommendations SNF Rehab Other Discharge Recommendations Pt wants home
[2019-01-17] MEDS: hydrOXYzine pamoate 25 MG CAPSULE PO (18:15)
--- NOTE | 2019-01-17 19:05 | PC.NURSE ---
Addendum entered by Quynh Jauregui R.N. 01/17/19 21:50: Pt had uneventful evening. Resting quietly at this time. Stable post op course. Condition remains essentially unchanged. Call light w/in reach, bed alarm on for pt safety. Continue w/plan of care. Original Note: Pt watching TV. Lungs clear, SpO2 98% Right hip dsg CDI, however the wendy drain non function. MD aware by day shift and will replace in am. Med @ 1820 w/percolone and vistaril for 05/05 pain w/fair relief. HL LFA intact/patent. Call light w/in reach, bed alarm on for pt safety.
[2019-01-17 19:40] VITALS: BP 125/66; PULSE 75; RESP 18; TEMP 36.8; O2SAT 96
[2019-01-18] VITALS (7 sets, daily range): BP systolic 108–135; BP diastolic 54–72; PULSE 63–90; RESP 16–20; TEMP 36.4–36.8; O2SAT 92–97
[2019-01-18] MEDS: hydrOXYzine pamoate 25 MG CAPSULE PO ×3 (00:08→21:41)
[2019-01-18] MEDS: OXYCODONE IR 5 MG TABLET PO ×3 (00:08→21:41)
--- NOTE | 2019-01-18 01:53 | PC.NURSE ---
Pt. has a maki catheter in place. Was given report by JANUSZ Pierre from evening shift stating that the catheter is to remain in place until the physical therapist comes to assess them on 01/18. Verified that there are no documented notes from a physician to remove.
[2019-01-18] MEDS: ACETAMINOPHEN 325 MG TABLET 975 MG PO ×3 (09:42→21:41)
[2019-01-18] MEDS: DOCUSATE 100 MG CAPSULE PO ×2 (09:42→21:41)
[2019-01-18] MEDS: ASPIRIN EC 81 MG TABLET PO ×2 (09:42→21:41)
--- NOTE | 2019-01-18 10:54 | PT.IPTN ---
Current Diagnoses Unspecified infectious disease (01/15/19) Mechanical loosening of other internal prosthetic joint, initial encounter (01/15/19) Presence of right artificial hip joint (01/15/19) Surgery Performed Operation Date: 01/15/19 07:45 Actual Procedures p Total Hip Arthroplasty Revision(Right) - Vesna Jessica MD Physical Therapy Treatment Note M2 PT-IP Current Condition Start: 01/16/19 17:19 Freq: NEEDED Status: Active Protocol: Document 01/16/19 11:15 DLM (Rec: 01/16/19 17:34 DLM [email or web address]) Physical Therapy Current Condition Current Condition Evaluation Date 01/16/19 Treatment Diagnosis 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, impaired gt Onset Date 01/15/19 Precautions Posterior Hip Precautions No Hip Flexion > 90 degrees No Hip Internal Rotation No Hip Adduction Other Precautions crunching sounds in right hip with any movement, Dr Jessica is aware Weight Bearing Status Weight Bearing Status Partial Weight Bearing Allowed Weight Bearing Amount (enter % 100# or #) (%) M3 PT-IP Subjective Start: 01/16/19 17:19 Freq: NEEDED Status: Active Protocol: Document 01/18/19 09:45 HH (Rec: 01/18/19 10:54 [email or web address]) Subjective Physical Therapy Visit Type Type Treatment Note Visit Start Time 09:45 Visit Stop Time 10:30 Total Visit Minutes 45 Number of SAGGER MAKER Visits 0 Physical Therapy Visit Comments Patient Comments He does not want to go to SNF. But he stated he started understanding his needs for basic ADLs and IADLs Therapy Pain Assessment Pain When Pain Assessed After Treatment Pain Present Pain Present Pain Reported M4 PT-IP Mobility and Gait Start: 01/16/19 17:19 Freq: NEEDED Status: Active Protocol: Document 01/18/19 09:45 HH (Rec: 01/18/19 10:54 [email or web address]) PT-Bed Mobility Assessment Supine to Sit Supine to Sit Contact Guard Assistance Scooting Scooting to Edge of Bed Standby Assistance PT-Transfer Assessment Sit to and From Stand Sit to and from Stand Minimal Assistance Use of Upper Extremities Equipment Transfer Assistive Device Gait Belt Front Wheeled Walker Transfers Transfer Destination Bed Chair Toilet Transfer Technique Stand Step Pivot Transfer Ability Level of Assist Contact Guard Assistance Minimal Assistance Use of Upper Extremities Comments Mobility Comments Pt used gait belt to lift his R LE to pivot for supine to sit to R side CGA. Pt stood up multiple times from bed and toilet (with commode on top) CGA/min A. Pt has difficulty for stand to sit and required cues to use stagger stance to lower himself. Gait Assessment Gait Gait Assistance Required: Contact Guard Assist Distance (Feet) 120 Able to Maintain Weight Bearing Status Yes During Gait Assistive Devices Assistive Device Gait Belt Front Wheeled Walker Gait Deviations General Gait Pattern Antalgic Decreased Stride Length Factors Limiting Gait Function Factors Limiting Gait Function Decreased Activity Tolerance Decreased Strength Pain Comments Gait Comments amb from EOB to toilet then to hallway and returned back to chair. PT-Balance Assessment Sitting Balance and Reactions Static Sitting Balance Ability Good Dynamic Sitting Balance Ability Good Standing Balance and Reactions Static Standing Balance Ability Good Dynamic Standing Balance Ability Fair Device Used fWW M5 PT-IP Objective Assessments Start: 01/16/19 17:19 Freq: NEEDED Status: Active Protocol: Document 01/16/19 11:15 DLM (Rec: 01/16/19 17:34 DLM [email or web address]) Orientation Orientation/Cognition Level of Alertness Alert Orientation Name Age Birthday Month Date Year Day of Week Place Situation Language Function Ability No Deficits Noted Safety Awareness Understands Safety Issues Memory Description No Deficits Noted Comments decreased awareness of the terminal system operator plan for his hip, difficulty understanding why he can not use his hip like after his first MICHAEL Gross Range of Motion Upper Extremity ROM Assessment Within Functional Limits Lower Extremity ROM Assessment Right Impaired Impairments post-op restrictions and pain, crepitus like noises with any ROM right hip Strength Upper Extremity Strength Assessment Within Functional Limits Lower Extremity Strength Assessment Right Impaired Hip needs assist to move due to pain Knee knee ext 2+/5 Ankle DF 4+/5 Comments Strength Comments pain limits functional strenght right LE, hx left patellofemoral dysfunction Coordination Assessment Gross Coordination Gross Coordination WNL Sensation Assessment Sensation Gross Sensation WNL Comments Sensation Comments no numbness reported this visit Muscle Tone Muscle Tone WNL Yes M6 PT-IP Treatment Start: 01/16/19 17:19 Freq: NEEDED Status: Active Protocol: Document 01/17/19 16:30 DLM (Rec: 01/17/19 17:14 DLM [id number]) Physical Therapy Treatment Exercises Exercises Ankle Pumps Education Education Provided Precautions Weight Bearing Status Safety Other Treatments Other Treatment Performed verbal cues during mobility for post hip precautions, educated pt in compensations including moving more from pelvis and minimizing right hip motions during bed mobility to better manage his pain and severe crepitus, he continues to have severe crepitus in right hip with all hip motions M7 PT-IP Assessment and Plan Start: 01/16/19 17:19 Freq: NEEDED Status: Active Protocol: Document 01/18/19 09:45 HH (Rec: 01/18/19 10:54 HH [email or web address]) PT Summary Assessment and Plan Summary Impairments Pain ROM Strength Balance Bed Mobility Transfers Gait Activity Tolerance Progress Towards Goals Slow Progress due to Pain Slow Progress due to Activity Tolerance Assessment Summary Recalled 2/3 postop precautions. (forgot bending > 90 degrees) Pt showed improved mobility but still required closed CGA/ min A for transfer , bed mobility. Crepitus cont presents with any hip movements. Pt implied he might need rehab sicne he recognized his impaired mobility especially transfer and bed mob. SNF is still an ideal option for him at this point due to his significant hip pain and decreased mobility. Goals Bed Mobility Goal Independent Transfer Goal Independent Front Wheeled Walker Gait Goal Independent Front Wheel Walker Gait Distance 200 Other Goals Demonstrate post hip precautions during mobility Days to Meet Goals 5 Frequency of Treatment Frequency Of Treatment Twice a Day Treatment Plan Physical Therapy Treatment Plan Bed Mobility Training Transfer Training Gait Training Therapeutic Exercise Post Op Education Discharge Planning Hot or Cold Pack Recommendations To Nursing Amount of Assist Needed 1 Person Assist Discharge Recommendations PT Discharge Recommendations SNF Rehab Other Discharge Recommendations Pt wants home
[2019-01-18] MEDS: ERTAPENEM 1 GM in SODIUM CHLORIDE 0.9% 100 ML 200 ML IV (10:59)
--- NOTE | 2019-01-18 13:42 | DI.RAD.S_ITS ---
PROCEDURE: XR CHEST FOR PICC 1V INDICATIONS: CONFIRM PICC LINE PLACEMENT COMPARISON: [facility], , CHEST FOR PICC PLACEMENT, 05/14/2016, 10:52. FINDINGS: PICC was placed by the intravenous therapy team from the left side. Fluoroscopic spot film demonstrates tip of PICC in the SVC. IMPRESSION: Tip of PICC lies within the SVC. Dictated by: Skyler Thomason M.D. on 01/18/2019 at 14:39 Approved by: Skyler Thomason M.D. on 01/18/2019 at 14:39
[2019-01-18] MEDS: DAPTOmycin 750 MG in SODIUM CHLORIDE 0.9% 50 ML 100 ML IV (14:58)
--- NOTE | 2019-01-18 15:03 | CM.DPC ---
DCP/continued: Reviewed chart. PICC line placement expected today. It continues to be anticipated that patient will need IV abx for senior care treatment. SENIOR RESIDENT CARE DIRECTOR placed call to [employer] # [phone] spoke with pharmacist. [facility] requesting that clinical be faxed to [phone] for review. Asked MAX/Loraine to fax and she is agreeable. At this time d/c date unknown. Patient with cultures pending. Spoke with therapy and they are report that patient requiring quite a bit of assistance. If patient adamant to return home will most likely need w/c and home health. P: CM team following closely for d/c planning needs. SWETHA Mata
--- NOTE | 2019-01-18 15:22 | P.PN_ITS ---
Subjective Date Patient Seen: 01/18/19 Time Patient Seen: 07:17 Interval history: POD #3 Status post revision right total hip arthroplasty with Dr. Jessica. Awaiting final culture and sensitivity results. Patient's pain has been well controlled. He has been ambulating with physical therapy in the snyder limited to 100 lb on the right. He is on IV antibiotics ertapenem and daptomycin. Patient reports his dressing does not appear to be functioning properly. Exam Vital Signs (past 8 hours): - 01/18/19 07:52 01/18/19 12:49 Temperature 98.3 F 97.6 F Pulse Rate 78 71 Respiratory Rate 16 16 Blood Pressure 133/70 113/54 L Pulse Oximetry 94 97 Oxygen Delivery Method Room Air Oxygen Flow Rate 0 Narrative Exam Narrative: Patient lying in bed in no acute distress. He is alert and oriented x3. Wendy dressing on right hip is CDI. Reinforced with IO band. Hemovac drain in place. His calves are soft, compressible, nontender bilaterally. Sensation intact light touch throughout bilateral lower extremities. He is able to actively dorsiflex and plantar flex. Objective Labs Result Diagrams: 01/16/19 05:52 01/16/19 05:50 Assessment & Plan Post-op Postoperative Procedures Operation Date: 01/15/19 07:45 Actual Procedures Side Surgeon p Total Hip Arthroplasty Revision Right Vesna Marty Jessica MD Patient will continue to mobilize with physical therapy partial weight-bearing to 100 lb on the right leg. Will check on wendy dressing later after re-enfor cement. Continue IV antibiotics until we have sensitivities back. Patient will have PICC line placed today. Continue current pain control. Patient will likely discharge tomorrow. Quality VTE Deep Vein Thrombosis/Pulmonary Embolism Present on Admission: No
--- NOTE | 2019-01-18 17:01 | PT.IPTN ---
Current Diagnoses Unspecified infectious disease (01/15/19) Mechanical loosening of other internal prosthetic joint, initial encounter (01/15/19) Presence of right artificial hip joint (01/15/19) Surgery Performed Operation Date: 01/15/19 07:45 Actual Procedures p Total Hip Arthroplasty Revision(Right) - Vesna Jessica MD Physical Therapy Treatment Note M2 PT-IP Current Condition Start: 01/16/19 17:19 Freq: NEEDED Status: Active Protocol: Document 01/16/19 11:15 DLM (Rec: 01/16/19 17:34 DLM [email or web address]) Physical Therapy Current Condition Current Condition Evaluation Date 01/16/19 Treatment Diagnosis 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, impaired gt Onset Date 01/15/19 Precautions Posterior Hip Precautions No Hip Flexion > 90 degrees No Hip Internal Rotation No Hip Adduction Other Precautions crunching sounds in right hip with any movement, Dr Jessica is aware Weight Bearing Status Weight Bearing Status Partial Weight Bearing Allowed Weight Bearing Amount (enter % 100# or #) (%) M3 PT-IP Subjective Start: 01/16/19 17:19 Freq: NEEDED Status: Active Protocol: Document 01/18/19 16:30 HH (Rec: 01/18/19 17:01 [email or web address]) Subjective Physical Therapy Visit Type Type Treatment Note Visit Start Time 16:30 Visit Stop Time 17:00 Total Visit Minutes 30 Number of MILL REPRESENTATIVE Visits 0 Physical Therapy Visit Comments Patient Comments Pt agreed to the need for rehab in SNF. I think i do need some rehab at this point. Therapy Pain Assessment Pain When Pain Assessed After Treatment Pain Present Pain Present Pain Reported M4 PT-IP Mobility and Gait Start: 01/16/19 17:19 Freq: NEEDED Status: Active Protocol: Document 01/18/19 16:30 HH (Rec: 01/18/19 17:01 [email or web address]) PT-Bed Mobility Assessment Supine to Sit Supine to Sit Standby Assistance Scooting Scooting to Edge of Bed Standby Assistance PT-Transfer Assessment Sit to and From Stand Sit to and from Stand Minimal Assistance Use of Upper Extremities Equipment Transfer Assistive Device Gait Belt Front Wheeled Walker Transfers Transfer Destination Bed Chair Toilet Transfer Technique Stand Step Pivot Transfer Ability Level of Assist Contact Guard Assistance Minimal Assistance Use of Upper Extremities Comments Mobility Comments Pt used gait belt to lift his R LE to pivot for supine to sit to R side CGA. Pt stood up multiple times from bed and toilet (with commode on top) CGA/min A. Pt has difficulty for stand to sit and required cues to use stagger stance to lower himself. Gait Assessment Gait Gait Assistance Required: Contact Guard Assist Distance (Feet) 140 Able to Maintain Weight Bearing Status Yes During Gait Assistive Devices Assistive Device Gait Belt Front Wheeled Walker Gait Deviations General Gait Pattern Antalgic Decreased Stride Length Factors Limiting Gait Function Factors Limiting Gait Function Decreased Activity Tolerance Decreased Strength Pain Comments Gait Comments amb from EOB to toilet then to hallway and returned back to chair. PT-Balance Assessment Sitting Balance and Reactions Static Sitting Balance Ability Good Dynamic Sitting Balance Ability Good Standing Balance and Reactions Static Standing Balance Ability Good Dynamic Standing Balance Ability Fair Device Used fWW M5 PT-IP Objective Assessments Start: 01/16/19 17:19 Freq: NEEDED Status: Active Protocol: Document 01/16/19 11:15 DLM (Rec: 01/16/19 17:34 DLM [email or web address]) Orientation Orientation/Cognition Level of Alertness Alert Orientation Name Age Birthday Month Date Year Day of Week Place Situation Language Function Ability No Deficits Noted Safety Awareness Understands Safety Issues Memory Description No Deficits Noted Comments decreased awareness of the care home plan for his hip, difficulty understanding why he can not use his hip like after his first MICHAEL Gross Range of Motion Upper Extremity ROM Assessment Within Functional Limits Lower Extremity ROM Assessment Right Impaired Impairments post-op restrictions and pain, crepitus like noises with any ROM right hip Strength Upper Extremity Strength Assessment Within Functional Limits Lower Extremity Strength Assessment Right Impaired Hip needs assist to move due to pain Knee knee ext 2+/5 Ankle DF 4+/5 Comments Strength Comments pain limits functional strenght right LE, hx left patellofemoral dysfunction Coordination Assessment Gross Coordination Gross Coordination WNL Sensation Assessment Sensation Gross Sensation WNL Comments Sensation Comments no numbness reported this visit Muscle Tone Muscle Tone WNL Yes M6 PT-IP Treatment Start: 01/16/19 17:19 Freq: NEEDED Status: Active Protocol: Document 01/17/19 16:30 DLM (Rec: 01/17/19 17:14 DLM [email or web address]) Physical Therapy Treatment Exercises Exercises Ankle Pumps Education Education Provided Precautions Weight Bearing Status Safety Other Treatments Other Treatment Performed verbal cues during mobility for post hip precautions, educated pt in compensations including moving more from pelvis and minimizing right hip motions during bed mobility to better manage his pain and severe crepitus, he continues to have severe crepitus in right hip with all hip motions M7 PT-IP Assessment and Plan Start: 01/16/19 17:19 Freq: NEEDED Status: Active Protocol: Document 01/18/19 16:30 HH (Rec: 01/18/19 17:01 [email or web address]) PT Summary Assessment and Plan Summary Impairments Pain ROM Strength Balance Bed Mobility Transfers Gait Activity Tolerance Progress Towards Goals Slow Progress due to Pain Slow Progress due to Activity Tolerance Assessment Summary Recalled 3/3 precautions. Pt showed slight improvements with amb distance this time but cont needed extra time for transfer and bed mobility due to pain. Pt agreed to d/c to SNF for short term rehab this session. Goals Bed Mobility Goal Independent Transfer Goal Independent Front Wheeled Walker Gait Goal Independent Front Wheel Walker Gait Distance 200 Other Goals Demonstrate post hip precautions during mobility Days to Meet Goals 5 Frequency of Treatment Frequency Of Treatment Twice a Day Treatment Plan Physical Therapy Treatment Plan Bed Mobility Training Transfer Training Gait Training Therapeutic Exercise Post Op Education Discharge Planning Hot or Cold Pack Recommendations To Nursing Amount of Assist Needed 1 Person Assist Discharge Recommendations PT Discharge Recommendations SNF Rehab Other Discharge Recommendations Pt agreed to d/c SNF for short term rehab
--- NOTE | 2019-01-18 17:58 | PC.NURSE ---
Evening note: Santino is ox3, pleasant & conversive with staff. VS stable, afebrile. R hip drsg is CDI, wendy drain box has blinking green light. Santino denies any pain tonight. Scheduled Tylenol given. Ambulated with PT assist. PICC line to ROMAN is patent, now heplocked after receiving antibiotic. PIV LFA also saline locked. He denies nausea, tolerating PO's, denies current needs or concerns.
[2019-01-19 05:53] VITALS: BP 133/76; PULSE 80; RESP 18; TEMP 37.1; O2SAT 96
[2019-01-19 08:15] VITALS: BP 132/78; PULSE 67; RESP 18; TEMP 36.3; O2SAT 93
[2019-01-19] MEDS: ACETAMINOPHEN 325 MG TABLET 975 MG PO ×3 (08:18→20:53)
[2019-01-19] MEDS: DOCUSATE 100 MG CAPSULE PO ×2 (08:19→20:53)
[2019-01-19] MEDS: hydrOXYzine pamoate 25 MG CAPSULE PO ×2 (08:19→20:53)
[2019-01-19] MEDS: ASPIRIN EC 81 MG TABLET PO ×2 (08:19→20:53)
--- NOTE | 2019-01-19 09:10 | P.PN_ITS ---
Subjective Date Patient Seen: 01/19/19 Time Patient Seen: 09:06 Interval history: Hospital day 5, postop day 4 following right hip infected total hip arthroplasty with revision and antibiotic spacer placed. Patient does have PICC line. He is currently receiving ertapenem and daptomycin IV. Wound cultures so far showing no growth. Dr. Jessica was planning on talking with Dr. Cooper, Infectious Disease, regarding antibiotic placement. His blood culture done through [facility] ER noted Staph epi. He is on 100 lb weight- bearing to the right leg. Patient states he has not been able to put that much weight on his leg yet. Still needing a lot of assist to get around. Discussion has been done regarding home IV antibiotic treatment. Patient lives alone and will need assist. He is amenable to SNF for a few days if needed before going home. Exam Vital Signs (past 8 hours): - 01/19/19 05:53 01/19/19 08:15 Temperature 98.7 F 97.3 F L Pulse Rate 80 67 Respiratory Rate 18 18 Blood Pressure 133/76 132/78 Pulse Oximetry 96 93 Oxygen Delivery Method Room Air Oxygen Flow Rate 0 Narrative Exam Narrative: Alert, oriented no acute distress resting in bed. Legs. Kiki dressing to right hip incision is sealed and dry. No calf pain or swelling. Pulses symmetrical. Objective Labs Result Diagrams: 01/16/19 05:52 01/16/19 05:50 Assessment & Plan Post-op Postoperative Procedures Operation Date: 01/15/19 07:45 Actual Procedures Side Surgeon p Total Hip Arthroplasty Revision Right Vesna Jessica MD Plan: Awaiting information by Dr. Jessica regarding what antibiotic to have patient on postop hospitalization. Discharge planners will also talk with patient about SNF versus home health. Plan discharge pending arrangements for either SNF or home health. Quality VTE Deep Vein Thrombosis/Pulmonary Embolism Present on Admission: No
[2019-01-19] MEDS: ERTAPENEM 1 GM in SODIUM CHLORIDE 0.9% 100 ML 200 ML IV (10:36)
[2019-01-19 11:50] LABS: Bacteria Det by PCR Univ WA SEE SEPARATE REPORTS
[2019-01-19 11:52] LABS: Bacteria Det by PCR Univ WA SEE SEPARATE REPORTS
--- NOTE | 2019-01-19 13:23 | PT.IPTN ---
Current Diagnoses Unspecified infectious disease (01/15/19) Mechanical loosening of other internal prosthetic joint, initial encounter (01/15/19) Presence of right artificial hip joint (01/15/19) Surgery Performed Operation Date: 01/15/19 07:45 Actual Procedures p Total Hip Arthroplasty Revision(Right) - Vesna Jessica MD Physical Therapy Treatment Note M2 PT-IP Current Condition Start: 01/16/19 17:19 Freq: NEEDED Status: Active Protocol: Document 01/16/19 11:15 DLM (Rec: 01/16/19 17:34 DLM [email or web address]) Physical Therapy Current Condition Current Condition Evaluation Date 01/16/19 Treatment Diagnosis 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, impaired gt Onset Date 01/15/19 Precautions Posterior Hip Precautions No Hip Flexion > 90 degrees No Hip Internal Rotation No Hip Adduction Other Precautions crunching sounds in right hip with any movement, Dr Jessica is aware Weight Bearing Status Weight Bearing Status Partial Weight Bearing Allowed Weight Bearing Amount (enter % 100# or #) (%) M3 PT-IP Subjective Start: 01/16/19 17:19 Freq: NEEDED Status: Active Protocol: Document 01/19/19 10:59 CLB (Rec: 01/19/19 13:23 CLB [id number]) Subjective Physical Therapy Visit Type Type Treatment Note Visit Start Time 10:59 Visit Stop Time 11:25 Total Visit Minutes 26 Number of VEGETABLE BUNCHER Visits 1 Physical Therapy Visit Comments Patient Comments Pt agreed to the need for rehab in SNF. I think i do need some rehab at this point. Therapy Pain Assessment Pain When Pain Assessed During Mobility Pain Present Pain Present Pain Reported Location Right Hip Intensity 1 Scale Used Numeric (1 - 10) M4 PT-IP Mobility and Gait Start: 01/16/19 17:19 Freq: NEEDED Status: Active Protocol: Document 01/19/19 10:59 CLB (Rec: 01/19/19 13:23 CLB [id number]) PT-Transfer Assessment Sit to and From Stand Sit to and from Stand Contact Guard Assistance 1 Person Assistance Use of Upper Extremities Equipment Transfer Assistive Device Gait Belt Front Wheeled Walker Transfers Transfer Destination Chair Transfer Ability Level of Assist Contact Guard Assistance 1 Person Assistance Use of Upper Extremities Comments Mobility Comments Pt sitting in chair and wanted to return to chair therefore bed mobility was not assessed. Pt is CGA for sit-stand requiring the use of UE to minimize putting increased wt on RLE. Gait Assessment Gait Gait Assistance Required: Contact Guard Assist Distance (Feet) 150 Assistive Devices Assistive Device Gait Belt Front Wheeled Walker Gait Deviations General Gait Pattern Antalgic Decreased Stride Length Factors Limiting Gait Function Factors Limiting Gait Function Decreased Activity Tolerance Decreased Strength Pain Comments Gait Comments Pt ambulated CGA ~150 ft with cues not to get to close to front of walker for safety. Stair Climbing Assessment Comments Stair Climbing Comments not assessed M5 PT-IP Objective Assessments Start: 01/16/19 17:19 Freq: NEEDED Status: Active Protocol: Document 01/16/19 11:15 DLM (Rec: 01/16/19 17:34 DLM [email or web address]) Orientation Orientation/Cognition Level of Alertness Alert Orientation Name Age Birthday Month Date Year Day of Week Place Situation Language Function Ability No Deficits Noted Safety Awareness Understands Safety Issues Memory Description No Deficits Noted Comments decreased awareness of the [facility] plan for his hip, difficulty understanding why he can not use his hip like after his first MICHAEL Gross Range of Motion Upper Extremity ROM Assessment Within Functional Limits Lower Extremity ROM Assessment Right Impaired Impairments post-op restrictions and pain, crepitus like noises with any ROM right hip Strength Upper Extremity Strength Assessment Within Functional Limits Lower Extremity Strength Assessment Right Impaired Hip needs assist to move due to pain Knee knee ext 2+/5 Ankle DF 4+/5 Comments Strength Comments pain limits functional strenght right LE, hx left patellofemoral dysfunction Coordination Assessment Gross Coordination Gross Coordination WNL Sensation Assessment Sensation Gross Sensation WNL Comments Sensation Comments no numbness reported this visit Muscle Tone Muscle Tone WNL Yes M6 PT-IP Treatment Start: 01/16/19 17:19 Freq: NEEDED Status: Active Protocol: Document 01/17/19 16:30 DLM (Rec: 01/17/19 17:14 DLM [id number]) Physical Therapy Treatment Exercises Exercises Ankle Pumps Education Education Provided Precautions Weight Bearing Status Safety Other Treatments Other Treatment Performed verbal cues during mobility for post hip precautions, educated pt in compensations including moving more from pelvis and minimizing right hip motions during bed mobility to better manage his pain and severe crepitus, he continues to have severe crepitus in right hip with all hip motions M7 PT-IP Assessment and Plan Start: 01/16/19 17:19 Freq: NEEDED Status: Active Protocol: Document 01/19/19 10:59 CLB (Rec: 01/19/19 13:23 CLB [id number]) PT Summary Assessment and Plan Summary Impairments Pain ROM Strength Balance Bed Mobility Transfers Gait Activity Tolerance Progress Towards Goals Slow Progress due to Activity Tolerance Assessment Summary Pt recalled 3/3 precautions. Pt able to ambulate with cues for walker use and use of UE to prevent increased wt on RLE . Pt lives alone and will require assist at home. Pt may need SNF rehab before returning home for increased endurance and strength if assist at home is not possible . Goals Bed Mobility Goal Independent Transfer Goal Independent Front Wheeled Walker Gait Goal Independent Front Wheel Walker Gait Distance 200 Other Goals Demonstrate post hip precautions during mobility, ambulate, bed mobility Days to Meet Goals 5 Frequency of Treatment Frequency Of Treatment Twice a Day Treatment Plan Physical Therapy Treatment Plan Bed Mobility Training Transfer Training Gait Training Therapeutic Exercise Post Op Education Discharge Planning Hot or Cold Pack Recommendations To Nursing Amount of Assist Needed 1 Person Assist Discharge Recommendations PT Discharge Recommendations Home with 24/7 Assist Home Health SNF Rehab Other Discharge Recommendations SNF rehab vs Home with 24/7 assist and HH
[2019-01-19] MEDS: DAPTOmycin 750 MG in SODIUM CHLORIDE 0.9% 50 ML 100 ML IV (13:42)
[2019-01-19 14:07] VITALS: BP 108/64; PULSE 68; RESP 16; O2SAT 99
--- NOTE | 2019-01-19 15:00 | PT.IPTN ---
Current Diagnoses Unspecified infectious disease (01/15/19) Mechanical loosening of other internal prosthetic joint, initial encounter (01/15/19) Presence of right artificial hip joint (01/15/19) Surgery Performed Operation Date: 01/15/19 07:45 Actual Procedures p Total Hip Arthroplasty Revision(Right) - Vesna Jessica MD Physical Therapy Treatment Note M2 PT-IP Current Condition Start: 01/16/19 17:19 Freq: NEEDED Status: Active Protocol: Document 01/16/19 11:15 DLM (Rec: 01/16/19 17:34 DLM [email or web address]) Physical Therapy Current Condition Current Condition Evaluation Date 01/16/19 Treatment Diagnosis 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, impaired gt Onset Date 01/15/19 Precautions Posterior Hip Precautions No Hip Flexion > 90 degrees No Hip Internal Rotation No Hip Adduction Other Precautions crunching sounds in right hip with any movement, Dr Jessica is aware Weight Bearing Status Weight Bearing Status Partial Weight Bearing Allowed Weight Bearing Amount (enter % 100# or #) (%) M3 PT-IP Subjective Start: 01/16/19 17:19 Freq: NEEDED Status: Active Protocol: Document 01/19/19 14:20 CLB (Rec: 01/19/19 15:00 CLB [id number]) Subjective Physical Therapy Visit Type Type Treatment Note Visit Start Time 14:20 Visit Stop Time 14:45 Total Visit Minutes 25 Number of ASSISTANT PRESS OPERATOR Visits 2 Physical Therapy Visit Comments Patient Comments Pt agreeable to do therapy. Therapy Pain Assessment Pain When Pain Assessed During Mobility Pain Present Pain Present Pain Reported Location Right Hip Intensity 3 Scale Used Numeric (1 - 10) M4 PT-IP Mobility and Gait Start: 01/16/19 17:19 Freq: NEEDED Status: Active Protocol: Document 01/19/19 14:20 CLB (Rec: 01/19/19 15:00 CLB [id number]) PT-Transfer Assessment Sit to and From Stand Sit to and from Stand Contact Guard Assistance 1 Person Assistance Use of Upper Extremities Equipment Transfer Assistive Device Gait Belt Front Wheeled Walker Transfers Transfer Destination Chair Transfer Ability Level of Assist Contact Guard Assistance 1 Person Assistance Use of Upper Extremities Gait Assessment Gait Gait Assistance Required: Contact Guard Assist Distance (Feet) 150 Assistive Devices Assistive Device Gait Belt Front Wheeled Walker Gait Deviations General Gait Pattern Antalgic Decreased Stride Length Factors Limiting Gait Function Factors Limiting Gait Function Decreased Activity Tolerance Decreased Strength Pain Stair Climbing Assessment Comments Stair Climbing Comments Pt will use ramp in garage to get into house. M5 PT-IP Objective Assessments Start: 01/16/19 17:19 Freq: NEEDED Status: Active Protocol: Document 01/16/19 11:15 DLM (Rec: 01/16/19 17:34 DLM [email or web address]) Orientation Orientation/Cognition Level of Alertness Alert Orientation Name Age Birthday Month Date Year Day of Week Place Situation Language Function Ability No Deficits Noted Safety Awareness Understands Safety Issues Memory Description No Deficits Noted Comments decreased awareness of the custodial plan for his hip, difficulty understanding why he can not use his hip like after his first MICHAEL Gross Range of Motion Upper Extremity ROM Assessment Within Functional Limits Lower Extremity ROM Assessment Right Impaired Impairments post-op restrictions and pain, crepitus like noises with any ROM right hip Strength Upper Extremity Strength Assessment Within Functional Limits Lower Extremity Strength Assessment Right Impaired Hip needs assist to move due to pain Knee knee ext 2+/5 Ankle DF 4+/5 Comments Strength Comments pain limits functional strenght right LE, hx left patellofemoral dysfunction Coordination Assessment Gross Coordination Gross Coordination WNL Sensation Assessment Sensation Gross Sensation WNL Comments Sensation Comments no numbness reported this visit Muscle Tone Muscle Tone WNL Yes M6 PT-IP Treatment Start: 01/16/19 17:19 Freq: NEEDED Status: Active Protocol: Document 01/19/19 14:20 CLB (Rec: 01/19/19 15:00 CLB [id number]) Physical Therapy Treatment Exercises Exercises Ankle Pumps Gluteal Sets Quad Sets Education Education Provided Precautions Weight Bearing Status Safety M7 PT-IP Assessment and Plan Start: 01/16/19 17:19 Freq: NEEDED Status: Active Protocol: Document 01/19/19 14:20 CLB (Rec: 01/19/19 15:00 CLB [id number]) PT Summary Assessment and Plan Summary Impairments Pain ROM Strength Balance Bed Mobility Transfers Gait Activity Tolerance Progress Towards Goals Slow Progress due to Activity Tolerance Assessment Summary Pt required cues to put leg out before standing and CGA to full stand. Pt improved safety in snyder during ambulation with proper walker/ step sequencing. Pt recalls 3/ 3 precaution. Pt had 3/10 pain with mobility. Goals Bed Mobility Goal Independent Transfer Goal Independent Front Wheeled Walker Gait Goal Independent Front Wheel Walker Gait Distance 200 Other Goals Demonstrate post hip precautions during mobility. Days to Meet Goals 5 Frequency of Treatment Frequency Of Treatment Twice a Day Treatment Plan Physical Therapy Treatment Plan Bed Mobility Training Transfer Training Gait Training Therapeutic Exercise Post Op Education Discharge Planning Hot or Cold Pack Recommendations To Nursing Amount of Assist Needed 1 Person Assist Discharge Recommendations PT Discharge Recommendations Home with 24/7 Assist Home Health SNF Rehab Other Discharge Recommendations SNF rehab vs Home with 24/7 assist and HH
[2019-01-19 15:15] VITALS: BP 116/66; PULSE 71; RESP 18; TEMP 36.3; O2SAT 95
--- NOTE | 2019-01-19 17:11 | CM.DPC ---
DCP continued: Reviewed chart. Spoke with Dr. Jessica this afternoon. She hopes to send patient home with IV abx in the next few days. Notified Dr. Jessica that infusion has been arranged with [facility]. Met with patient to discuss plan. Patient now considering short SNF stay then home with IV abx. Patient's first SNF choice is [facility]. H[employer] K[employer]TER placed call and faxed clinical to attn: Juliane. Patient not completely sure SNF would be best but would like to see how he does over the next 24hrs. Notified patient that both plans have been started. Patient very appreciative. P: HOT KNIFE CUTTER to follow closely. Anticipate home with IV infusion through [facility] vs. short SNF stay until stronger. [facility] reviewing. SWETHA Mata
[2019-01-19 20:00] VITALS: BP 111/64; PULSE 65; RESP 18; TEMP 36.3
[2019-01-19] MEDS: OXYCODONE IR 5 MG TABLET PO (20:53)
[2019-01-19 23:15] VITALS: BP 103/67; PULSE 74; RESP 18; TEMP 35.9; O2SAT 95
[2019-01-20 05:15] VITALS: BP 115/55; PULSE 64; RESP 18; TEMP 36.6; O2SAT 99
[2019-01-20] MEDS: DOCUSATE 100 MG CAPSULE PO ×2 (08:33→21:13)
[2019-01-20] MEDS: ASPIRIN EC 81 MG TABLET PO ×2 (08:33→21:14)
[2019-01-20] MEDS: ACETAMINOPHEN 325 MG TABLET 975 MG PO ×3 (08:33→21:14)
[2019-01-20 09:00] VITALS: BP 130/68; PULSE 72; RESP 16; TEMP 36.6; O2SAT 96
--- NOTE | 2019-01-20 09:47 | PM.PNPO.1 ---
Subjective Date Patient Seen: 01/20/19 Time Patient Seen: 09:48 Interval history: Patient's pain is mild. Denies fever chills. No nausea vomiting. Patient was able to ambulate in the snyder yesterday with physical therapy. He was able to do a couple steps. He has 1 step into his house. He has friends that will be assisting him and are available tomorrow. Otherwise without complaints. Exam Vital Signs (past 8 hours): - 01/20/19 05:15 01/20/19 09:00 Temperature 97.8 F 97.8 F Pulse Rate 64 72 Respiratory Rate 18 16 Blood Pressure 115/55 L 130/68 Pulse Oximetry 99 96 Oxygen Delivery Method Room Air Oxygen Flow Rate 0 Narrative Exam Narrative: Pleasant 53-year-old male resting comfortably in bedside chair in no apparent distress. Right hip dressing is on and functioning. Dressing itself is clean dry and intact. Motor functions intact distal right lower extremity. Right leg is warm and dry. Sensation intact to light touch. Objective Labs Result Diagrams: 01/16/19 05:52 01/16/19 05:50 Labs: Laboratory Results - last 24 hr 01/15/19 01/15/19 10:00 18:08 Bacterial Detect (PCR) See separate reports See separate reports Gram Stain Final 01/15/19-2219 Epithelial cells Occasional (0-1) Gram Positive Cocci Scant Aerobic Culture for wounds Preliminary 01/19/19-1109 No growth. Anaerobic Culture Preliminary 01/19/19-1151 No growth. Assessment & Plan Post-op Postoperative Procedures Operation Date: 01/15/19 07:45 Actual Procedures Side Surgeon p Total Hip Arthroplasty Revision Right Vesna Marty Jessica MD postop day 5., patient progressing as expected status post right hip revision with placement of antibiotic spacer January 15, 2019. Patient currently on IV ertapenem and daptomycin. I will talk with Dr. Jessica regarding IV vs PO abx. Likely discharge home tomorrow. Quality VTE Deep Vein Thrombosis/Pulmonary Embolism Present on Admission: No
--- NOTE | 2019-01-20 09:54 | P.PN_ITS ---
Subjective Date Patient Seen: 01/20/19 Time Patient Seen: 09:48 Interval history: Patient's pain is mild. Denies fever chills. No nausea vomiting. Patient was able to ambulate in the snyder yesterday with physical therapy. He was able to do a couple steps. He has 1 step into his house. He has friends that will be assisting him and are available tomorrow. Otherwise without complaints. Exam Vital Signs (past 8 hours): - 01/20/19 05:15 01/20/19 09:00 Temperature 97.8 F 97.8 F Pulse Rate 64 72 Respiratory Rate 18 16 Blood Pressure 115/55 L 130/68 Pulse Oximetry 99 96 Oxygen Delivery Method Room Air Oxygen Flow Rate 0 Narrative Exam Narrative: Pleasant 53-year-old male resting comfortably in bedside chair in no apparent distress. Right hip dressing is on and functioning. Dressing itself is clean dry and intact. Motor functions intact distal right lower extremity. Right leg is warm and dry. Sensation intact to light touch. Objective Labs Result Diagrams: 01/16/19 05:52 01/16/19 05:50 Labs: Laboratory Results - last 24 hr 01/15/19 01/15/19 10:00 18:08 Bacterial Detect (PCR) See separate reports See separate reports Gram Stain Final 01/15/19-2219 Epithelial cells Occasional (0-1) Gram Positive Cocci Scant Aerobic Culture for wounds Preliminary 01/19/19- 1109 No growth. Anaerobic Culture Preliminary 01/19/19- 1151 No growth. Assessment & Plan Post-op Postoperative Procedures Operation Date: 01/15/19 07:45 Actual Procedures Side Surgeon p Total Hip Arthroplasty Revision Right Vesna Marty Jessica MD postop day 5., patient progressing as expected status post right hip revision with placement of antibiotic spacer January 15, 2019. Patient currently on IV ertapenem and daptomycin. I will talk with Dr. Jessica regarding IV vs PO abx. L ikely discharge home tomorrow. Quality VTE Deep Vein Thrombosis/Pulmonary Embolism Present on Admission: No
--- NOTE | 2019-01-20 10:30 | PT.IPTN ---
Current Diagnoses Unspecified infectious disease (01/15/19) Mechanical loosening of other internal prosthetic joint, initial encounter (01/15/19) Presence of right artificial hip joint (01/15/19) Surgery Performed Operation Date: 01/15/19 07:45 Actual Procedures p Total Hip Arthroplasty Revision(Right) - Vesna Jessica MD Physical Therapy Treatment Note M2 PT-IP Current Condition Start: 01/16/19 17:19 Freq: NEEDED Status: Active Protocol: Document 01/16/19 11:15 DLM (Rec: 01/16/19 17:34 DLM [email or web address]) Physical Therapy Current Condition Current Condition Evaluation Date 01/16/19 Treatment Diagnosis 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, impaired gt Onset Date 01/15/19 Precautions Posterior Hip Precautions No Hip Flexion > 90 degrees No Hip Internal Rotation No Hip Adduction Other Precautions crunching sounds in right hip with any movement, Dr Jessica is aware Weight Bearing Status Weight Bearing Status Partial Weight Bearing Allowed Weight Bearing Amount (enter % 100# or #) (%) M3 PT-IP Subjective Start: 01/16/19 17:19 Freq: NEEDED Status: Active Protocol: Document 01/20/19 10:21 SA (Rec: 01/20/19 10:30 SA [id number]) Subjective Physical Therapy Visit Type Type Treatment Note Visit Start Time 09:00 Visit Stop Time 09:30 Total Visit Minutes 30 Number of LEVERMAN Visits 3 Physical Therapy Visit Comments Patient Comments Pt agreeable to PT this AM. Therapy Pain Assessment Pain When Pain Assessed During Mobility Pain Present Pain Present Denied Pain M4 PT-IP Mobility and Gait Start: 01/16/19 17:19 Freq: NEEDED Status: Active Protocol: Document 01/20/19 10:21 SA (Rec: 01/20/19 10:30 [id number]) PT-Bed Mobility Assessment Rolling Type of Rolling Roll to Right Level of Assist Standby Assistance Supine to Sit Supine to Sit Standby Assistance Sit to Supine Sit to Supine Standby Assistance Scooting Scooting to Edge of Bed Standby Assistance Scooting Up and Down in Bed Standby Assistance PT-Transfer Assessment Sit to and From Stand Sit to and from Stand Contact Guard Assistance 1 Person Assistance Use of Upper Extremities Equipment Transfer Assistive Device Gait Belt Front Wheeled Walker Transfers Transfer Destination Chair Toilet Transfer Ability Level of Assist Standby Assistance Contact Guard Assistance 1 Person Assistance Comments Mobility Comments Pt SBA with all bed mobility and use of gait belt around foot for clearing RLE over EOB for SUP<>Sit. SBA-CGA for stand pivot txs. Pt denies pain. Gait Assessment Gait Gait Assistance Required: Standby Assistance Contact Guard Assist Distance (Feet) 200 Assistive Devices Assistive Device Gait Belt Front Wheeled Walker Gait Deviations General Gait Pattern Antalgic Decreased Stride Length Factors Limiting Gait Function Factors Limiting Gait Function Decreased Activity Tolerance Decreased Strength Comments Gait Comments Gait training in halls with SBA-CGA for 200 fet with pt able to correct of step to gait pattern with cues, gradually increasing WBing through RLE with gait, no LOB and good safety awareness. Stair Climbing Assessment Evaluation Level of Assist On Stairs Standby Assistance Contact Guard Assistance Devices Stair Climbing Assistive Devices Left Railing Right Railing Technique/Endurance Stair Climbing Direction Ascend and Descend Stair Climbing Technique Step to Step Number of Steps Climbed 2 Query Text: Stair Climbing Set # Repetitions (reps) 2 Comments Stair Climbing Comments Pt has 1 step in fron entry, or garage with ramp. PT-Balance Assessment Comments Other Balance Tests/Deviations/Treatment Pt stood at sink with SUP to : brush teeth and wash hands, no LOB. M5 PT-IP Objective Assessments Start: 01/16/19 17:19 Freq: NEEDED Status: Active Protocol: Document 01/16/19 11:15 DLM (Rec: 01/16/19 17:34 DLM [email or web address]) Orientation Orientation/Cognition Level of Alertness Alert Orientation Name Age Birthday Month Date Year Day of Week Place Situation Language Function Ability No Deficits Noted Safety Awareness Understands Safety Issues Memory Description No Deficits Noted Comments decreased awareness of the jail plan for his hip, difficulty understanding why he can not use his hip like after his first MICHAEL Gross Range of Motion Upper Extremity ROM Assessment Within Functional Limits Lower Extremity ROM Assessment Right Impaired Impairments post-op restrictions and pain, crepitus like noises with any ROM right hip Strength Upper Extremity Strength Assessment Within Functional Limits Lower Extremity Strength Assessment Right Impaired Hip needs assist to move due to pain Knee knee ext 2+/5 Ankle DF 4+/5 Comments Strength Comments pain limits functional strenght right LE, hx left patellofemoral dysfunction Coordination Assessment Gross Coordination Gross Coordination WNL Sensation Assessment Sensation Gross Sensation WNL Comments Sensation Comments no numbness reported this visit Muscle Tone Muscle Tone WNL Yes M6 PT-IP Treatment Start: 01/16/19 17:19 Freq: NEEDED Status: Active Protocol: Document 01/20/19 10:21 SA (Rec: 01/20/19 10:30 [id number]) Physical Therapy Treatment Exercises Exercises Ankle Pumps Gluteal Sets Quad Sets Education Education Provided Precautions Weight Bearing Status Safety M7 PT-IP Assessment and Plan Start: 01/16/19 17:19 Freq: NEEDED Status: Active Protocol: Document 01/20/19 10:21 SA (Rec: 01/20/19 10:30 [id number]) PT Summary Assessment and Plan Summary Assessment Summary Pt progressing well with decreased level of assist and reports he will have more help from friends at home then previously thought, do not think this pt is SNF candidate . Demonstrates good safety awareness and judgment, pt is aware of hip precautions, home is equipped with elevated toilet, walk in shower with shower bench and grab bars. Pt has SPC and FWW. Recommend d/ c home with home health. Frequency of Treatment Frequency Of Treatment Twice a Day Recommendations To Nursing Amount of Assist Needed 1 Person Assist Discharge Recommendations PT Discharge Recommendations Home with Assistance Home Health
[2019-01-20] MEDS: ERTAPENEM 1 GM in SODIUM CHLORIDE 0.9% 100 ML 200 ML IV (10:47)
[2019-01-20] MEDS: DAPTOmycin 750 MG in SODIUM CHLORIDE 0.9% 50 ML 100 ML IV (11:41)
[2019-01-20 12:00] VITALS: BP 127/75; PULSE 63; RESP 16; TEMP 36.5
--- NOTE | 2019-01-20 15:00 | PT.IPTN ---
Current Diagnoses Unspecified infectious disease (01/15/19) Mechanical loosening of other internal prosthetic joint, initial encounter (01/15/19) Presence of right artificial hip joint (01/15/19) Surgery Performed Operation Date: 01/15/19 07:45 Actual Procedures p Total Hip Arthroplasty Revision(Right) - Vesna Jessica MD Physical Therapy Treatment Note M2 PT-IP Current Condition Start: 01/16/19 17:19 Freq: NEEDED Status: Active Protocol: Document 01/16/19 11:15 DLM (Rec: 01/16/19 17:34 DLM [id number]) Physical Therapy Current Condition Current Condition Evaluation Date 01/16/19 Treatment Diagnosis 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, impaired gt Onset Date 01/15/19 Precautions Posterior Hip Precautions No Hip Flexion > 90 degrees No Hip Internal Rotation No Hip Adduction Other Precautions crunching sounds in right hip with any movement, Dr Jessica is aware Weight Bearing Status Weight Bearing Status Partial Weight Bearing Allowed Weight Bearing Amount (enter % 100# or #) (%) M3 PT-IP Subjective Start: 01/16/19 17:19 Freq: NEEDED Status: Active Protocol: Document 01/20/19 14:45 SA (Rec: 01/20/19 15:00 [id number]) Subjective Physical Therapy Visit Type Type Treatment Note Visit Start Time 13:45 Visit Stop Time 14:10 Total Visit Minutes 25 Number of AUTOMOTIVE DRIVABILITY TECHNICIAN Visits 4 Physical Therapy Visit Comments Patient Comments Pt agreeable to PT this PM. Therapy Pain Assessment Pain When Pain Assessed During Mobility Pain Present Pain Present Denied Pain M4 PT-IP Mobility and Gait Start: 01/16/19 17:19 Freq: NEEDED Status: Active Protocol: Document 01/20/19 14:45 SA (Rec: 01/20/19 15:00 [id number]) PT-Bed Mobility Assessment Rolling Type of Rolling Roll to Right Level of Assist Standby Assistance Supine to Sit Supine to Sit Standby Assistance Sit to Supine Sit to Supine Standby Assistance Scooting Scooting to Edge of Bed Standby Assistance Scooting Up and Down in Bed Standby Assistance PT-Transfer Assessment Sit to and From Stand Sit to and from Stand Contact Guard Assistance 1 Person Assistance Use of Upper Extremities Equipment Transfer Assistive Device Gait Belt Front Wheeled Walker Transfers Transfer Destination Bed Chair Transfer Ability Level of Assist Standby Assistance Contact Guard Assistance 1 Person Assistance Comments Mobility Comments Continued education with hip and WBing precaution during mobility tasks, discussed bending over to wash dog paws and pt understands he will not be able to do this amount of bending forward, does have sock aide and belting and webbing inspector that he uses correctly from [facility]. Pt is SBA-CGA with bed mobility and transfers. Gait Assessment Gait Gait Assistance Required: Standby Assistance Contact Guard Assist Distance (Feet) 200 Assistive Devices Assistive Device Gait Belt Front Wheeled Walker Gait Deviations General Gait Pattern Antalgic Decreased Stride Length Factors Limiting Gait Function Factors Limiting Gait Function Decreased Activity Tolerance Decreased Strength Comments Gait Comments Continued to progress gait training with improved posture and step length, pt is strong UEs and is able to transfer weight well and maintain WBing precaution with gait with FWW . Stair Climbing Assessment Evaluation Level of Assist On Stairs Standby Assistance Contact Guard Assistance Devices Stair Climbing Assistive Devices Left Railing Right Railing Technique/Endurance Stair Climbing Direction Ascend and Descend Stair Climbing Technique Step to Step Number of Steps Climbed 3 Query Text: Stair Climbing Set # Repetitions (reps) 2 Comments Stair Climbing Comments Pt progressing well, uses B rail for UE support, only needs to do one step for front entrance of home. PT-Balance Assessment Sitting Balance and Reactions Static Sitting Balance Ability Good Dynamic Sitting Balance Ability Good Comments Other Balance Tests/Deviations/Treatment Pt able to transfer on/off : toilet with SBA, no LOB. Doing ADL tasks at sink well with SBA. M5 PT-IP Objective Assessments Start: 01/16/19 17:19 Freq: NEEDED Status: Active Protocol: Document 01/16/19 11:15 DLM (Rec: 01/16/19 17:34 DLM [id number]) Orientation Orientation/Cognition Level of Alertness Alert Orientation Name Age Birthday Month Date Year Day of Week Place Situation Language Function Ability No Deficits Noted Safety Awareness Understands Safety Issues Memory Description No Deficits Noted Comments decreased awareness of the snf plan for his hip, difficulty understanding why he can not use his hip like after his first MICHAEL Gross Range of Motion Upper Extremity ROM Assessment Within Functional Limits Lower Extremity ROM Assessment Right Impaired Impairments post-op restrictions and pain, crepitus like noises with any ROM right hip Strength Upper Extremity Strength Assessment Within Functional Limits Lower Extremity Strength Assessment Right Impaired Hip needs assist to move due to pain Knee knee ext 2+/5 Ankle DF 4+/5 Comments Strength Comments pain limits functional strenght right LE, hx left patellofemoral dysfunction Coordination Assessment Gross Coordination Gross Coordination WNL Sensation Assessment Sensation Gross Sensation WNL Comments Sensation Comments no numbness reported this visit Muscle Tone Muscle Tone WNL Yes M6 PT-IP Treatment Start: 01/16/19 17:19 Freq: NEEDED Status: Active Protocol: Document 01/20/19 14:45 SA (Rec: 01/20/19 15:00 [id number]) Physical Therapy Treatment Exercises Exercises Ankle Pumps Gluteal Sets Quad Sets Heel Slides Supine Hip Abduction Education Education Provided Precautions Weight Bearing Status Safety M7 PT-IP Assessment and Plan Start: 01/16/19 17:19 Freq: NEEDED Status: Active Protocol: Document 01/20/19 14:45 SA (Rec: 01/20/19 15:00 [id number]) PT Summary Assessment and Plan Summary Assessment Summary Pt progressing well with mobility tasks, increasing strength and activity tolerance. Pt understands precautions and WBing status and is able to maintain with use of FWW. Frequency of Treatment Frequency Of Treatment Twice a Day Treatment Plan Physical Therapy Treatment Plan Bed Mobility Training Transfer Training Gait Training Therapeutic Exercise Post Op Education Discharge Planning Hot or Cold Pack Recommendations To Nursing Amount of Assist Needed 1 Person Assist Discharge Recommendations PT Discharge Recommendations Home with Assistance Home Health
[2019-01-20 15:35] VITALS: BP 121/68; PULSE 68; RESP 18; TEMP 37.1; O2SAT 97
--- NOTE | 2019-01-20 17:48 | PC.NURSE ---
No complaints this shift, VSS. Tolerated ambulation with PT as noted. YOUNG dressing remains CDI. Good pulses and +CMS. Call light within reach.
[2019-01-20 19:49] VITALS: BP 116/63; PULSE 72; RESP 18; TEMP 36.8
[2019-01-20] MEDS: hydrOXYzine pamoate 25 MG CAPSULE PO (21:13)
[2019-01-20] MEDS: OXYCODONE IR 5 MG TABLET PO (21:13)
[2019-01-21 00:15] VITALS: BP 109/59; PULSE 64; RESP 18; TEMP 36.4; O2SAT 98
[2019-01-21 04:55] VITALS: BP 119/71; PULSE 66; RESP 17; TEMP 36.3; O2SAT 97
[2019-01-21] MEDS: ACETAMINOPHEN 325 MG TABLET 975 MG PO (07:59)
[2019-01-21 08:00] VITALS: BP 124/76; PULSE 61; RESP 16; TEMP 36.4; O2SAT 99
[2019-01-21] MEDS: DOCUSATE 100 MG CAPSULE PO (08:00)
[2019-01-21] MEDS: ASPIRIN EC 81 MG TABLET PO (08:00)
[2019-01-21] MEDS: SODIUM CHLORIDE 0.9% FLUSH 10 ML IV (08:02)
[2019-01-21] MEDS: ERTAPENEM 1 GM in SODIUM CHLORIDE 0.9% 100 ML 200 ML IV (10:10)
--- NOTE | 2019-01-21 10:28 | CM.DPC ---
DCP Discharge Home with HH and Infusion Per PA, pt medically stable to d/c home today with PT/OT and Home infusion for ongoing IV-Abx needs. Per PA, pt d/c on Dapto 750 mg and Ertapenem 2 g both Q24. SW met bedside with pt and explained role and discussed d/c and pt still agreeable to home with [facility] for home infusion and pt has a hx of utilizing home infusion in the past and is comfortable with this plan. Pt aware that he will receive his IV-Abx here today around lunchtime and then [facility] will administer his dose tomorrow. SW discussed the PT recommendation of HH and pt agreeable as he does not feel he can reasonable make it to outpt PT appointments at this time and would like PT/OT and preference is [facility] after reviewing the Choice List. CHITO spoke to [facility] [place] and confirmed pt d/c home today and waiting for orders and d/c summary to be available to fax to [facility]. They will call pt today to schedule their first home visit for possibly this evening. CHITO spoke to Thelma at [facility] who confirms they are contracted with [facility] and can accept the referral. KIA Baron to fax clinicals to [facility] and [facility] when available. F2F signed by for . Plan: Patient to d/c home via friend POV today around 1400 with [facility] and [facility] to follow. Louisa Willoughby, INTERNATIONAL ACCOUNT EXECUTIVE
--- NOTE | 2019-01-21 10:28 | PM.DS.1 ---
History of Present Illness Date Patient Seen: 01/21/19 Time Patient Seen: 10:28 Chief complaint: [id number] Right MICHAEL Narrative: Hospital day 7, postop day 6 following infected right total hip arthroplasty revision with antibiotic head. Patient continues to do well. Ambulating with walker. Patient does feel that he is able to go home with home health assist rather than going to a SNF. He will continue on ertapenem and daptomycin x6 weeks. Arrangements have been made with [facility] for home health antibiotics. Patient does feel that he is ready to go home today. Discharge Providers Date of admission: 01/15/19 06:14 Discharge Date: 01/21/19 Primary care physician: Matthias Astorga MD Consults: 01/12/19 13:45 Consult to Anesthesiology Routine Comment: Consulting Provider: Anesthesiologist Reason for consultation: PAC courtesy re: abnormal pre-op ECG Consult to Respiratory Therapy Evaluate & Treat Comment: Physician Instructions: Evaluate and treat Consult to Pill Coater Routine Comment: 01/15/19 06:00 Consult to Anesthesiology Routine Comment: Consulting Provider: Anesthesiologist Reason for consultation: Regional block for post operative pain control Has provider been notified: Yes 01/15/19 18:50 Consult to Discharge Planning Routine Comment: Consult to Physical Therapy Evaluate & Treat Comment: 100 lbs max, touch down weight bearing Physician Instructions: post op MICHAEL protocol Consult to Respiratory Therapy Evaluate & Treat Comment: Physician Instructions: Evaluate and treat 01/16/19 08:39 Consult to PICC Line RN Routine Comment: 01/18/19 10:29 Consult to PICC Line RN Routine Comment: Discharge provider: Reginaldo Her PA-C Summary Discharge Diagnosis: 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 Hospital Course: Patient brought to hospital on 01/15/2019 for above-noted surgery. He remained stable postoperatively. Did well on IV antibiotic and progressed with physical therapy. Ready for discharge to home on postop day 6 with home health therapy and home IV antibiotic treatment. Status at Discharge Cognitive/behavioral status at discharge: oriented Functional status at discharge: uses cane/walker Overall status at discharge: patient is progressing back to baseline Time Spent with Patient Less than 30 minutes Exam Vital Signs (past 8 hours): - 01/21/19 04:55 01/21/19 08:00 Temperature 97.4 F L 97.6 F Pulse Rate 66 61 Respiratory Rate 17 16 Blood Pressure 119/71 124/76 Pulse Oximetry 97 99 Oxygen Delivery Method Room Air Oxygen Flow Rate 0 Narrative Exam Narrative: Alert, oriented no acute distress resting in bed. Legs. Kiki dressing to right hip is dry without drainage or inflammation. Good vacuum. No calf pain or swelling. Pulses symmetrical. Objective Labs Result Diagrams: 01/16/19 05:52 01/16/19 05:50 Discharge Plan Discharge Plan Patient Disposition: Home Health Service Transfer to: [facility] Discharge comment: Patient will be on ertapenem 2 g q.d. and daptomycin 750 mg q.d. IV through [facility]. Home health PT/OT as needed. Weightbearing as tolerated to right leg. Discharge Med Rec/Prescriptions Prescriptions: New acetaminophen 325 mg Tablet 975 mg PO TID Qty: 60 RF: 0 aspirin 81 mg Tablet,Delayed Release (Dr/Ec) 81 mg PO BID Qty: 60 RF: 0 docusate sodium 100 mg Capsule 100 mg PO BID Qty: 60 RF: 0 oxycodone 5 mg Tablet 5 mg PO Q4-6H PRN (Reason: Pain, Moderate (4-6)) Qty: 40 RF: 0 hydroxyzine pamoate 25 mg Capsule 25 mg PO Q6HR PRN (Reason: Spasms) Qty: 40 RF: 0 Discontinued clindamycin HCl 300 mg Capsule 300 mg PO QID RF: 0 Follow up/Referrals: Matthias Astorga MD [Primary Care Provider] - Vesna Jessica MD [Physician] - Provider Discharge Instructions Diet: Diet as Tolerated Activity: weight bearing limited to 100lb right leg. Ambulate with walker as needed. Cold/Heat Therapy: as needed Skin/Wound/Dressing Care Report to your healthcare provider any signs of infection, such as:: chills, fever, night sweats, increased pain, unusual drainage and unusual redness Dressing: leave in place until appointment Visit Report/Discharge Packet Instructions: DI for Hip Replacement Visit Report Forms: Stroke Signs & Symptoms Discharge Data Primary Care Provider: Matthias Astorga Attending Provider: Vesna Jessica Admit Date/Time: 01/15/19 06:14 Quality VTE Deep Vein Thrombosis/Pulmonary Embolism Present on Admission: No
--- NOTE | 2019-01-21 10:34 | P.DS_ITS ---
History of Present Illness Date Patient Seen: 01/21/19 Time Patient Seen: 10:28 Chief complaint: [id number] Right MICHAEL Narrative: Hospital day 7, postop day 6 following infected right total hip art hroplasty revision with antibiotic head. Patient continues to do well. Ambulating with walker. Patient does feel that he is able to go home with home health assist rather than going to a SNF. He will continue on ertapenem and daptomycin x6 weeks. Arrangements have been made with [facility] for home health antibiotics. Patient does feel that he is ready to go home today. Discharge Providers Date of admission: 01/15/19 06:14 Discharge Date: 01/21/19 Primary care physician: Matthias Astorga MD Consults: 01/12/19 13:45 Consult to Anesthesiology Routine Comment: Consulting Provider: Anesthesiologist Reason for consultation: PAC courtesy re: abnormal pre-op ECG Consult to Respiratory Therapy Evaluate & Treat Comment: Physician Instructions: Evaluate and treat Consult to Venereal Disease Investigator Routine Comment: 01/15/19 06:00 Consult to Anesthesiology Routine Comment: Consulting Provider: Anesthesiologist Reason for consultation: Regional block for post operative pain control Has provider been notified: Yes 01/15/19 18:50 Consult to Discharge Planning Routine Comment: Consult to Physical Therapy Evaluate & Treat Comment: 100 lbs max, touch down weight bearing Physician Instructions: post op MICHAEL protocol Consult to Respiratory Therapy Evaluate & Treat Comment: Physician Instructions: Evaluate and treat 01/16/19 08:39 Consult to PICC Line RN Routine Comment: 01/18/19 10:29 Consult to PICC Line RN Routine Comment: Discharge provider: Reginaldo Her PA-C Summary Discharge Diagnosis: 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 Hospital Course: Patient brought to hospital on 01/15/2019 for above-noted surgery. He remained stable postoperatively. Did well on IV antibiotic and progressed with physical therapy. Ready for discharge to home on postop day 6 with home health therapy and home IV antibiotic treatment. Status at Discharge Cognitive/behavioral status at discharge: oriented Functional status at discharge: uses cane/walker Overall status at discharge: patient is progressing back to baseline Time Spent with Patient Less than 30 minutes Exam Vital Signs (past 8 hours): - 01/21/19 04:55 01/21/19 08:00 Temperature 97.4 F L 97.6 F Pulse Rate 66 61 Respiratory Rate 17 16 Blood Pressure 119/71 124/76 Pulse Oximetry 97 99 Oxygen Delivery Method Room Air Oxygen Flow Rate 0 Narrative Exam Narrative: Alert, oriented no acute distress resting in bed. Legs. Kiki dressing to right hip is dry without drainage or inflammation. Good vacuum. No calf pain or swelling. Pulses symmetrical. Objective Labs Result Diagrams: 01/16/19 05:52 01/16/19 05:50 Discharge Plan Discharge Plan Patient Disposition: Home Health Service Transfer to: [facility] Discharge comment: Patient will be on ertapenem 2 g q.d. and daptomycin 750 mg q.d. IV through [facility]. Home health PT/OT as needed. Weightbearing as tolerated to right leg. Discharge Med Rec/Prescriptions Prescriptions: New acetaminophen 325 mg Tablet 975 mg PO TID Qty: 60 RF: 0 aspirin 81 mg Tablet,Delayed Release (Dr/Ec) 81 mg PO BID Qty: 60 RF: 0 docusate sodium 100 mg Capsule 100 mg PO BID Qty: 60 RF: 0 oxycodone 5 mg Tablet 5 mg PO Q4-6H PRN (Reason: Pain, Moderate (4-6)) Qty: 40 RF: 0 hydroxyzine pamoate 25 mg Capsule 25 mg PO Q6HR PRN (Reason: Spasms) Qty: 40 RF: 0 Discontinued clindamycin HCl 300 mg Capsule 300 mg PO QID RF: 0 Follow up/Referrals: Matthias Astorga MD [Primary Care Provider] - Vesna Jessica MD [Physician] - Provider Discharge Instructions Diet: Diet as Tolerated Activity: weight bearing limited to 100lb right leg. Ambulate with walker as ne eded. Cold/Heat Therapy: as needed Skin/Wound/Dressing Care Report to your healthcare provider any signs of infection, such as:: chills, fever, night sweats, increased pain, unusual drainage and unusual redness Dressing: leave in place until appointment Visit Report/Discharge Packet Instructions: DI for Hip Replacement Visit Report Forms: Stroke Signs & Symptoms Discharge Data Primary Care Provider: Matthias Astorga Attending Provider: Vesna Jessica Admit Date/Time: 01/15/19 06:14 Quality VTE Deep Vein Thrombosis/Pulmonary Embolism Present on Admission: No
[2019-01-21] MEDS: DAPTOmycin 750 MG in SODIUM CHLORIDE 0.9% 50 ML 100 ML IV (10:42)
[2019-01-21 12:00] VITALS: BP 118/72; PULSE 70; RESP 16; TEMP 36.3; O2SAT 100
--- NOTE | 2019-01-21 12:04 | PT.IPTN ---
Current Diagnoses Unspecified infectious disease (01/15/19) Mechanical loosening of other internal prosthetic joint, initial encounter (01/15/19) Presence of right artificial hip joint (01/15/19) Surgery Performed Operation Date: 01/15/19 07:45 Actual Procedures p Total Hip Arthroplasty Revision(Right) - Vesna Jessica MD Physical Therapy Treatment Note M2 PT-IP Current Condition Start: 01/16/19 17:19 Freq: NEEDED Status: Active Protocol: Document 01/16/19 11:15 DLM (Rec: 01/16/19 17:34 DLM [email or web address]) Physical Therapy Current Condition Current Condition Evaluation Date 01/16/19 Treatment Diagnosis 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, impaired gt Onset Date 01/15/19 Precautions Posterior Hip Precautions No Hip Flexion > 90 degrees No Hip Internal Rotation No Hip Adduction Other Precautions crunching sounds in right hip with any movement, Dr Jessica is aware Weight Bearing Status Weight Bearing Status Partial Weight Bearing Allowed Weight Bearing Amount (enter % 100# or #) (%) M3 PT-IP Subjective Start: 01/16/19 17:19 Freq: NEEDED Status: Active Protocol: Document 01/21/19 11:56 SA (Rec: 01/21/19 12:04 [id number]) Subjective Physical Therapy Visit Type Type Treatment Note Visit Start Time 09:35 Visit Stop Time 10:05 Total Visit Minutes 30 Number of SPIRITS MODEL Visits 5 Physical Therapy Visit Comments Patient Comments Pt in bed and agreeable to PT. Therapy Pain Assessment Pain When Pain Assessed During Mobility Pain Present Pain Present Denied Pain M4 PT-IP Mobility and Gait Start: 01/16/19 17:19 Freq: NEEDED Status: Active Protocol: Document 01/21/19 11:56 SA (Rec: 01/21/19 12:04 [id number]) PT-Bed Mobility Assessment Rolling Type of Rolling Roll to Right Level of Assist Independent Supine to Sit Supine to Sit Independent Sit to Supine Sit to Supine Independent Scooting Scooting to Edge of Bed Independent Scooting Up and Down in Bed Independent PT-Transfer Assessment Sit to and From Stand Sit to and from Stand Standby Assistance 1 Person Assistance Use of Upper Extremities Equipment Transfer Assistive Device Gait Belt Front Wheeled Walker Transfers Transfer Destination Bed Toilet Transfer Technique Stand Step Pivot Transfer Ability Level of Assist Standby Assistance 1 Person Assistance Comments Mobility Comments Use of scale today to monitor RLE WBing with mobilities, pt remains below 90# with both. IND with bed mobility and SBA with transfers. Gait Assessment Gait Gait Assistance Required: Standby Assistance Distance (Feet) 220 Assistive Devices Assistive Device Gait Belt Front Wheeled Walker Gait Deviations General Gait Pattern Antalgic Decreased Stride Length Factors Limiting Gait Function Factors Limiting Gait Function Decreased Activity Tolerance Decreased Strength Comments Gait Comments Pt with improved gait quality and good ability to maintain 100# WBing with FWW. Stair Climbing Assessment Evaluation Level of Assist On Stairs Standby Assistance Devices Stair Climbing Assistive Devices Front Wheel Walker Technique/Endurance Stair Climbing Direction Ascend and Descend Stair Climbing Technique Step to Step Number of Steps Climbed 1 Query Text: Stair Climbing Set # Repetitions (reps) 4 Comments Stair Climbing Comments Used FWW on platform as pt only has one step and room for FWW with no railing, Worked well, pt SBA with min cues for safety. PT-Balance Assessment Sitting Balance and Reactions Static Sitting Balance Ability Good Dynamic Sitting Balance Ability Good Comments Other Balance Tests/Deviations/Treatment Static standing with use of : scale and pt maintains about 80# WBing on RLE, even without FWW. M5 PT-IP Objective Assessments Start: 01/16/19 17:19 Freq: NEEDED Status: Active Protocol: Document 01/16/19 11:15 DLM (Rec: 01/16/19 17:34 DLM [email or web address]) Orientation Orientation/Cognition Level of Alertness Alert Orientation Name Age Birthday Month Date Year Day of Week Place Situation Language Function Ability No Deficits Noted Safety Awareness Understands Safety Issues Memory Description No Deficits Noted Comments decreased awareness of the senior care plan for his hip, difficulty understanding why he can not use his hip like after his first MICHAEL Gross Range of Motion Upper Extremity ROM Assessment Within Functional Limits Lower Extremity ROM Assessment Right Impaired Impairments post-op restrictions and pain, crepitus like noises with any ROM right hip Strength Upper Extremity Strength Assessment Within Functional Limits Lower Extremity Strength Assessment Right Impaired Hip needs assist to move due to pain Knee knee ext 2+/5 Ankle DF 4+/5 Comments Strength Comments pain limits functional strength right LE, hx left patellofemoral dysfunction Coordination Assessment Gross Coordination Gross Coordination WNL Sensation Assessment Sensation Gross Sensation WNL Comments Sensation Comments no numbness reported this visit Muscle Tone Muscle Tone WNL Yes M6 PT-IP Treatment Start: 01/16/19 17:19 Freq: NEEDED Status: Active Protocol: Document 01/21/19 11:56 SA (Rec: 01/21/19 12:04 [id number]) Physical Therapy Treatment Exercises Exercises Ankle Pumps Gluteal Sets Quad Sets Heel Slides Supine Hip Abduction Education Education Provided Precautions Weight Bearing Status Safety M7 PT-IP Assessment and Plan Start: 01/16/19 17:19 Freq: NEEDED Status: Active Protocol: Document 01/21/19 11:56 (Rec: 01/21/19 12:04 [id number]) PT Summary Assessment and Plan Summary Assessment Summary Pt ready for d/c this afternoon, has home health PT and infusion therapy set up. All equipment in place and a group of friends rotating shifts to help him at home. Pt very aware of WBing and hip precautions. Frequency of Treatment Frequency Of Treatment Twice a Day Treatment Plan Physical Therapy Treatment Plan Bed Mobility Training Transfer Training Gait Training Therapeutic Exercise Post Op Education Discharge Planning Hot or Cold Pack Recommendations To Nursing Amount of Assist Needed 1 Person Assist Discharge Recommendations PT Discharge Recommendations Home with Assistance Home Health
--- NOTE | 2019-01-21 12:42 | CM.DPC ---
DCP Cont: Faxed discharge referral to [facility] at fax # [phone]. Also faxed most recent labs to [facility] at fax # [phone], as requested. Both fax confirmation sheets scanned in. Loraine Hilton, Care Planer Operator / Grader
--- NOTE | 2019-01-21 13:52 | PC.NURSE ---
Day shift: Left unit at approx 1400 to private car. Went in WC with COTTON GINNER HELPER and Pt's friend. Paperwork signed and all questions answered. Pt has MD alonso. Pt has all personal belongings.
== END 2019-01-21 13:53 | disposition home health service (06) | DRG 309 ==
PROVIDERS: Admitting Provider Orthopaedic Surgery; PCP Family Medicine; Visit Provider Orthopaedic Surgery
PROC: 0SH908Z Insertion of Spacer into Right Hip Joint, Open Approach (ICD-10-PCS; principal; 2019-01-15 07:45)
DX: T84.51XA Infection and inflammatory reaction due to internal right hip prosthesis, initial encounter (principal); F17.210 Nicotine dependence, cigarettes, uncomplicated
CPT/HCPCS: 36415; 36430; 36573; 73502; 80202; 82565; 85014; 85018; 86850; 86900; 86901; 87070; 87075; 87077; 87205; 87801; 97110; 97116; 97162; 97530; 99406; C1776; P9016; C9290; J0690; J0878; J1100; J1170; J1335; J1642; J2250; J2405; J2704; J3010; J3370

== ENCOUNTER 2019-04-13 05:47 | Inpatient (IN) | payer MEDICARE, MEDICAID, SELFPAY ==
[2019-01-15 19:00] VITALS: BMI 33.5
[2019-04-09 08:43] VITALS: BMI 31.5
[2019-04-13] VITALS (16 sets, daily range): BP systolic 104–159; BP diastolic 60–98; PULSE 49–80; RESP 10–18; TEMP 35.8–36.4; O2SAT 91–99; BMI 30.9
--- NOTE | 2019-04-13 | DI.RAD.S_ITS ---
PROCEDURE: XR FEMUR RT MIN 2V INDICATIONS: RT HIP FX// SURGERY TECHNIQUE: 5 intraoperative fluoroscopic views of the femur were acquired. COMPARISON: [facility], CR, XR PELVIS WITH LATERAL HIP RIGHT, 04/07/2019, 10:10Located Within [facility], CR, XR HIP W PEL IF DONE RT 2V, 04/13/2019, 12:48. FINDINGS: Intraoperative fluoroscopic images of right hip shows revision of previously noted right total hip arthroplasty with a new right femoral head component in place. Alignment of right hip is anatomic. IMPRESSION: Fluoroscopy guidance was provided intraoperatively for right total hip arthroplasty revision. Dictated by: Skyler Thomason M.D. on 04/13/2019 at 13:14 Approved by: Skyler Thomason M.D. on 04/13/2019 at 13:19
--- NOTE | 2019-04-13 06:00 | DI.RAD.S_ITS ---
PROCEDURE: XR HIP W PEL IF DONE RT 2V INDICATIONS: post op TECHNIQUE: AP pelvis with lateral view(s) of the right hip(s). COMPARISON: [facility], CR, XR FEMUR RT MIN 2V, 04/13/2019, 11:07. [facility], CR, XR PELVIS WITH LATERAL HIP RIGHT, 04/07/2019, 10:10. [facility], CR, XR HIP W PEL IF DONE RT 2V, 01/15/2019, 17:36. FINDINGS: Bones: Revised right hip arthroplasty expected postoperative alignment. Hardware appears intact. There is cerclage wire fixation. 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 Soft tissues: The visualized bowel gas pattern is normal. No suspicious soft tissue calcifications. IMPRESSION: Expected postoperative alignment Dictated by: Tee Zuleta M.D. on 04/13/2019 at 13:14 Approved by: Tee Zuleta M.D. on 04/13/2019 at 13:16
[2019-04-13] MEDS: VANCOMYCIN 1,000 MG/200 ML PIGGYBACK 200 MG IV (06:45)
[2019-04-13] MEDS: CELECOXIB 200 MG CAPSULE PO (07:06)
[2019-04-13] MEDS: PREGABALIN 75 MG CAPSULE PO (07:06)
[2019-04-13] MEDS: ACETAMINOPHEN 325 MG TABLET 975 MG PO ×3 (07:06→21:17)
[2019-04-13] MEDS: LACTATED RINGERS 1,000 ML 42 ML IV ×3 (07:30→10:15)
[2019-04-13] MEDS: CEFAZOLIN 2 GM/100 ML FROZ.PIGGY IV ×4 (07:45→23:50)
--- NOTE | 2019-04-13 07:47 | PM.PREOP ---
Pre-operative Note Interval Note History & Physical reviewed/Exam performed by Physician: Yes Changes to H&P: No
[2019-04-13] MEDS: TRANEXAMIC ACID 1,000 MG VIAL 1000 MG INJ ×2 (08:00→12:07)
--- NOTE | 2019-04-13 08:02 | P.OP_ITS ---
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 Post-op diagnosis: same Procedure & Clinicians Procedure: Revision of right hip antibiotic spacer to a total hip arthroplasty Same procedure as scheduled: Yes Indications: This is the 54-year-old gentleman who has a remote history of a right total hip arthroplasty. About 5 years after his index procedure he developed a right hip infection. He then underwent an irrigation and debridement and had antibiotic suppression for a fairly prolonged period of time. Ultimately he developed a sinus and previously has undergone removal of his hip prosthesis and placement of an antibiotic spacer. His inflammatory markers have normalized and an aspiration of his hip was negative. He is now brought to the operating room for revision to a total hip arthroplasty Surgeon: Vesna Jessica Fleet Operations Manager: Hubert Montejo Anesthesia Type: General and Spinal Operative Notes Findings: No evidence of active infection. Multiple cultures sent. Early healing of his trochanteric osteotomy. Additional heterotopic ossification that was removed. Good stability. Closure Type: primary Specimen(s): other (Multiple cultures, PCR) Prosthetic devices, grafts, tissues, transplants, or devices: Size 60 cup, 2 bone screws, neutral liner, Biomet G7 cup, 40 by +0 head, 17 Britt stem length 190, taper 12 /14 Applied: drain(s) Estimated Blood Loss (mL): 290 Blood products transfused: none Procedure in detail: The patient was seen in the pre-operative area, where the patient identified the right hip as the operative site and this was marked with my initials. The patient received pre-operative antibiotics and was taken to the operating room and placed on the operative table in the left lateral decubitus position after satisfactory anesthesia. A social media marketer out was performed. The right leg was prepared from the ankle to the iliac crest with ChloroPrep in the usual fashion and draped through sterile drapes. The hip was approached through an approximately 24 cm incision centered over the greater trochanter and curving gently posteriorly as it went proximally, using the patient's previous incision. This was carried sharply to the fascia sidney, which was divided and retracted with a self retaining retractor. The gluteal tissue was meticulously mobilized and freed as there was dense scar between the fascia and the underlying trochanter. Meticulous care being taken to avoid the sciatic nerve, which was identified and protected throughout the case. The tissues were meticulously mobilized. There was dense scar adherent to the trochanter which was meticulously freed from the bone. There was substantial r esidual heterotopic ossification in the capsule and abductors. The abductors were carefully freed and carefully protected. A significant amount of heterotopic ossification was carefully removed. Cultures were sent from acetabulum, the trochanter, the synovium, and ultimately the femoral canal. Dissection was carried out along the posterior rim of the acetabulum and then superiorly and along the anterior aspect of the acetabulum. The hip was dislocated after the capsule had been adequately freed from the femur and adequate heterotopic ossification had been removed. Retractors were placed around the femur. The head was removed without difficulty. A small amount of cement was removed from around the proximal aspect of the component and the component was removed after it had been care fully freed from the lateral trochanteric shoulder. Retractors were placed to expose the acetabulum. The central soft tissues were removed. Reaming was performed initially going up in 2 mm increments, then 1 mm increments until good bite was obtained with an odd sized reamer. The cup 1 mm larger than the last reamer was then inserted using the appropriate anteversion guides. Both anterior and posterior dillon were carefully defined as was the superior aspect of the acetabulum. Two screws were placed in the acetabulum to adequately stabilize the acetabulum and the stability was carefully checked. Trial liner was placed. Attention was then directed to the femur. The canal was carefully reamed using the voc the reamers I went up to a size 17 which showed good bite and good stability with 190 mm insertion level. I brought the fluoro in during reaming to confirm the quality of the reaming as well as overall canal fit. Trial size 17 x 190 valve nerve component was inserted and we checked for leg lengths and stability and repeat x-ray to reconfirmed position of the component as well as to re-evaluate the trochanteric osteotomy. The cerclage wires and the osteotomy appeared to be competent. A trial head and neck were then placed and the hip relocated and checked for leg length and stability. The patient was stable in the position of sleep, of squatting, and could be put through a range of motion with 45 degrees internal rotation without dislocation. At 90 degrees flexion, internal rotation to 70 was possible before dislocation. This was felt to be satisfactory and the appropriate components were opened, and the trials were removed. Both the femoral canal and the acetabulum were meticulously irrigated with the pulse lavage. Vancomycin powder was placed along the bone of the acetabulum as well as in the intramedullary canal of the femur. The acetabular liner was impacted into position. The final stem was then impacted into the prepared femoral canal. A brief Betadine soak was performed while trialing with head options. The hip was meticulously irrigated with normal saline. Finally the femoral head was impacted onto the stem. The acetabulum was cleared of all material and the hip relocated one final time. The capsulomuscular flap was then repaired to the greater trochanter with interrupted Vicryl tag sutures. A deep drain was placed and brought out ante riorly. The fascia sidney was closed with Vicryl. The subcutaneous layer was closed with barbed sutures and SteriStrips. An Aquacel Ag dressing was applied and the patient was taken to recovery having tolerated the procedure well. Complications: none Condition: stable Disposition: Acute Care Plan for aftercare: The patient will be maintained on a standard total hip replacement protocol with weight bearing as tolerated and posterior hip precautions. The patient will receive Aspirin and sequential compression devices for DVT prophylaxis. The patient will be discharged home when safe for the home environment.
[2019-04-13] MEDS: BUPIVACAINE 0.5% W/ EPI (PF) VIAL 30 ML INJ (08:49)
[2019-04-13] MEDS: BUPIVACAINE LIPOSOME 266 MG/20 ML VIAL INJ (08:50)
--- NOTE | 2019-04-13 08:52 | SUR.OPER ---
Patient's glasses placed in black glass bauman, labeled with name. Will return in PACU
[2019-04-13] MEDS: POVIDONE IODINE TOP (08:56)
[2019-04-13] MEDS: SODIUM CHLORIDE TOP (08:56)
[2019-04-13] MEDS: SODIUM CHLORIDE IRRIG SOLUTION 250 ML, EPINEPHrine 1 MG IRR (08:58)
[2019-04-13] MEDS: VANCOMYCIN 1,000 MG VIAL 1000 MG TOP (10:01)
--- NOTE | 2019-04-13 12:48 | SUR.PHASEI ---
report given to JANUSZ Garrido. pt awake, talkative, no complaints of pain or nausea. radiology called for xrays. piv intact and infusing LR. Drains and maki secured and intact.
--- NOTE | 2019-04-13 12:50 | SUR.PHASEI ---
Assumed care. Pt awake, joking with staff.
--- NOTE | 2019-04-13 13:05 | SUR.PHASEI ---
Report called to Pearl
--- NOTE | 2019-04-13 13:24 | SUR.PHASEI ---
Pt transferred to the floor with belongings bag, green bag and grabber. Report to [facility]. VS stable. IV saline locked. Rt hip DRSGs CDI. Pt able to wiggle randy toes. Roldan secured and patent.
[2019-04-13] MEDS: LACTATED RINGERS 1,000 ML 125 ML IV ×2 (14:25→21:57)
--- NOTE | 2019-04-13 20:14 | PC.NURSE ---
Post-op note: Patient resting in bed, awake, Ox3 & situation, speech clear & he is talkative with staff members. RA oxygen 96-100%, post-op VS have been stable. CMS intact. Denies numbness or tingling to legs, posterior hip precautions in place. Wearing bilateral calf SCD's. Denies any pain. Right hip with YOUNG drsg CDI, hemovac emptied at 1500 with 50 ml red sanguinous drainage. Roldan patent w/clear lisset urine. Reports good appetite, denies nausea. IVF infusing to IV site LFA with no difficulty, IV antibiotic infused per schedule. Mesh stockinette applied to secure IV tubing & continuous pulse ox tubing. He states no concerns or needs tonight, reminded to call stafff if needs OOB, fall precaution in place & bed alarm active.
[2019-04-13] MEDS: DOCUSATE 100 MG CAPSULE PO (21:18)
[2019-04-13] MEDS: ASPIRIN EC 81 MG TABLET PO (21:18)
[2019-04-14 00:30] VITALS: BP 110/87; PULSE 60; RESP 16; TEMP 36.7; O2SAT 95
[2019-04-14 05:15] VITALS: BP 110/64; PULSE 64; RESP 16; TEMP 36.7; O2SAT 96
[2019-04-14 05:24] LABS: Hematocrit 30.2 % (41-53); Hemoglobin 9.8 g/dL (13.5-17.5)
[2019-04-14 08:00] VITALS: BP 123/67; PULSE 58; RESP 16; TEMP 36.6; O2SAT 97
[2019-04-14] MEDS: POLYETHYLENE GLYCOL 3350 17 GM POWD.PACK PO (08:37)
[2019-04-14] MEDS: OXYCODONE IR 5 MG TABLET PO ×2 (08:38→14:15)
[2019-04-14] MEDS: ACETAMINOPHEN 325 MG TABLET 975 MG PO ×2 (08:39→14:18)
[2019-04-14] MEDS: DOCUSATE 100 MG CAPSULE PO (08:39)
[2019-04-14] MEDS: ASPIRIN EC 81 MG TABLET PO (08:39)
[2019-04-14 08:41] VITALS: O2SAT 96
[2019-04-14] MEDS: SODIUM CHLORIDE 0.9% FLUSH 10 ML IV (08:41)
--- NOTE | 2019-04-14 09:47 | PT.IIE ---
Current Diagnoses Pyogenic arthritis, unspecified (04/13/19) Mechanical loosening of other internal prosthetic joint, initial encounter (04/13/19) Aftercare following explantation of hip joint prosthesis (04/13/19) Surgery Performed Operation Date: 04/13/19 07:45 Actual Procedures p Total Hip Arthroplasty Revision(Right) - Vesna Jessica MD Surgical History (This Medical Record has been edited. Action required.) History of total right hip arthroplasty (Acute 01/15/19) History of incision and drainage (Acute ~2015) History of total right hip arthroplasty (Acute 03/18/11) Hx of hand surgery (Acute) Hx of tonsillectomy (Acute) Medical History (This Medical Record has been edited. 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 Mobility and Gait Pt used a 4WW for community and FWW for home mobility. He does have a SPC but does not use it. He also said he couldnt drive and reach his feet because of hip pain. Activities of Daily Living and IADL's Use a maori physiotherapist and sock aid. Independent with ADLs with a walker. Has a friend that drove him to doctor appointment. Social History Household Members none Living Arrangements House Number of Floors (Floors) One Floor Number of Stairs To Enter/Railing? 1 JORDAN without rail Has a ramp with rails from garage entrance Home Environment High Toilet Walk in Shower Home Equipment Front Wheel Walker Four Wheel Walker Straight Cane Shower Seat with Backrest Loan Analyst Sock Aid Grab Bars Near Toilet Grab Bars In Shower Employment Status Unknown Additional Social History Comment This is the 54-year-old gentleman who has a remote history of a right total hip arthroplasty. About 5 years after his index procedure he developed a right hip infection. He then underwent an irrigation and debridement and had antibiotic suppression for a fairly prolonged period of time. 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 Social hx: Pt lives in [place] by himself. He said he has a friend to stay with him for a few days to assist as needed. M2 PT-IP Current Condition Start: 04/13/19 15:56 Freq: NEEDED Status: Active Protocol: Document 04/14/19 08:50 (Rec: 04/14/19 09:47 [id number]) Physical Therapy Current Condition Current Condition Evaluation Date 04/14/19 Treatment Diagnosis Revision of right hip antibiotic spacer to a total hip arthroplasty Onset Date 04/13/19 Precautions Posterior Hip Precautions No Hip Flexion > 90 degrees No Hip Internal Rotation No Hip Adduction Weight Bearing Status Weight Bearing Status Weight Bear as Tolerated M3 PT-IP Subjective Start: 04/13/19 15:56 Freq: NEEDED Status: Active Protocol: Document 04/14/19 08:50 HH (Rec: 04/14/19 09:47 [id number]) Subjective Physical Therapy Visit Type Type Initial Evaluation Visit Start Time 08:50 Visit Stop Time 09:20 Total Visit Minutes 30 Notes Hemovac and maki catheter in place. Number of SCRAP HOOKER Visits 0 Physical Therapy Visit Comments Patient Comments I dont have any pain. I am ready to walk. Patient Goals To return home today. Therapy Pain Assessment Pain When Pain Assessed During Mobility Pain Present Pain Present Denied Pain M4 PT-IP Mobility and Gait Start: 04/13/19 15:56 Freq: NEEDED Status: Active Protocol: Document 04/14/19 08:50 (Rec: 04/14/19 09:47 [id number]) PT-Bed Mobility Assessment Rolling Type of Rolling Roll to Right Level of Assist Independent Supine to Sit Supine to Sit Independent Bedrails Scooting Scooting to Edge of Bed Independent PT-Transfer Assessment Sit to and From Stand Sit to and from Stand Standby Assistance Equipment Transfer Assistive Device Gait Belt Orthotic/Prosthetic Devices or Brace: No Transfers Transfer Destination Bed Chair Transfer Technique Stand Step Pivot Transfer Ability Level of Assist Standby Assistance Comments Mobility Comments Pt got up from supine to EOB on right side by unweighting RLE through LLE. He is able to perform sit <> stand with proper hand placements on armrest and FWW. Gait Assessment Gait Gait Assistance Required: Standby Assistance Distance (Feet) 600 Able to Maintain Weight Bearing Status Yes During Gait Assistive Devices Assistive Device Gait Belt Front Wheeled Walker Orthotic/Prosthetic Devices or Brace: No Gait Deviations General Gait Pattern Antalgic Decreased Stride Length Decreased Feet Clearance Factors Limiting Gait Function Factors Limiting Gait Function Decreased Activity Tolerance Decreased Strength Limited Range of Motion Pain Comments Gait Comments Pt was able to amb from his room to the other end of AC unit for a total of 600 ft with FWW. Pt initially amb with only slight decreased R foot clearance and stride length. Able to maintain upright posture. However, he did present increase in antalgic gait and trunk flexion for the last 200 feet and required cues to facilitate upright position. Pt returned to bedside chair with call light within reach. denies pain or any acute distress. Stair Climbing Assessment Evaluation Level of Assist On Stairs Standby Assistance Devices Stair Climbing Assistive Devices Left Railing Right Railing Technique/Endurance Stair Climbing Direction Ascend and Descend Stair Climbing Technique Step to Step Number of Steps Climbed 3 Query Text: Stair Climbing Set # Repetitions (reps) 1 PT-Balance Assessment Sitting Balance and Reactions Static Sitting Balance Ability Normal Dynamic Sitting Balance Ability Normal Standing Balance and Reactions Static Standing Balance Ability Normal Dynamic Standing Balance Ability Normal M5 PT-IP Objective Assessments Start: 04/13/19 15:56 Freq: NEEDED Status: Active Protocol: Document 04/14/19 08:50 (Rec: 04/14/19 09:47 [id number]) Orientation Orientation/Cognition Level of Alertness Alert Orientation Name Age Birthday Month Date Year Day of Week Place Situation Language Function Ability No Deficits Noted Safety Awareness Understands Safety Issues Memory Description No Deficits Noted Gross Range of Motion Upper Extremity ROM Assessment Within Functional Limits Lower Extremity ROM Assessment Right Impaired Strength Upper Extremity Strength Assessment Within Functional Limits Lower Extremity Strength Assessment Right Impaired Hip 4/5 Coordination Assessment Gross Coordination Gross Coordination WNL Sensation Assessment Sensation Gross Sensation WNL Muscle Tone Muscle Tone WNL Yes M6 PT-IP Treatment Start: 04/13/19 15:56 Freq: NEEDED Status: Active Protocol: Document 04/14/19 08:50 (Rec: 04/14/19 09:47 [id number]) Physical Therapy Treatment Exercises Exercises Gluteal Sets Education Education Provided Precautions Weight Bearing Status Post-Op Packet Safety Other Treatments Other Treatment Performed standing posterior pelvic tilt standing gluteal sets M7 PT-IP Assessment and Plan Start: 04/13/19 15:56 Freq: NEEDED Status: Active Protocol: Document 04/14/19 08:50 (Rec: 04/14/19 09:47 [id number]) PT Summary Assessment and Plan Potential Rehabilitation Potential Excellent Status of Condition at Evaluation Stable Summary Impairments Pain ROM Strength Balance Bed Mobility Transfers Gait Activity Tolerance Assessment Summary Pt is a low complexity who is POD #2 Revision of right hip antibiotic spacer to a total hip arthroplasty. Pt shows very good understanding of his condition and precautions 3/3 due to previous hip sx. He was able to amb 600 ft with FWW and negotiate stairs SBA/I safely. He also has adequate DME at home and will have a friend to stay with him to assist him as needed. Pt also stated I am much better than last surgery at this point. In my professional opinion, pt is safe to d/c to home with his friend's assistance today. Frequency of Treatment Frequency Of Treatment Discharge Recommendations To Nursing Amount of Assist Needed Standby Assistance Discharge Recommendations PT Discharge Recommendations Home with Assistance
--- NOTE | 2019-04-14 10:06 | PC.NURSE ---
Addendum entered by Adelita Moctezuma R.N. 04/14/19 15:12: Reviewed Discharge summary packet at 1405, no voiced concerns, states is ready to go home. Pt left unit in no distress via wheelchair at 1512 with all belongings and his friend is present to drive him home. Addendum entered by Adelita Moctezuma R.N. 04/14/19 13:23: Rec'd call from Dr. Jessica, aware of patient's preferred pharmacy of [facility] in [place]. Pt confirms he has Clindamycin 300mg tabs, a large bottle barely used at home, within expiry date. Dr. Jessica states for patient to take 300mg tab 4 times per day. Original Note: Day Shift- Pt A&OX4, able to make needs known using call light. Rates 1/10 pain to right hip, medicated with Oxycodone 5mg at 0840 in anticipation of working with PT. CMS+, PPP. Right hip YOUNG dressing intact with small amount of drainage shadowing to proximal end of dressing. HEMOVAC and Urinary catheter removed at 1000. Per Reginaldo Salazar, PAC, pt okay to discharge. Per PT Okay to discharge. Pt will have a friend pick him up around 1530 for discharge.
--- NOTE | 2019-04-14 10:55 | P.DS_ITS ---
History of Present Illness Date Patient Seen: 04/14/19 Time Patient Seen: 10:52 Chief complaint: 56132 RIGHT HIP REVISION Narrative: Hospital day 2, postop day 1 following revision right total hip arthroplasty by Dr. Jessica. Patient doing well this morning. He has been up and ambulating with physical therapy. He does have Roldan catheter in place and Hemovac with 15 mL drainage. Patient feels he is ready for discharge home today. Discharge Providers Date of admission: 04/13/19 05:47 Discharge Date: 04/14/19 Primary care physician: Elías Cooper Consults: 04/09/19 09:49 Consult to Respiratory Therapy Evaluate & Treat Comment: Physician Instructions: Evaluate and treat Consult to Steam Station Supervisor Routine Comment: 04/13/19 06:00 Consult to Anesthesiology Routine Comment: Consulting Provider: Anesthesiologist Reason for consultation: Regional block for post operative pain control 04/13/19 14:06 Consult to Discharge Planning Routine Comment: Consult to Physical Therapy Evaluate & Treat Comment: Physician Instructions: post op MICHAEL protocol Consult to Respiratory Therapy Evaluate & Treat Comment: Physician Instructions: Evaluate and treat 04/13/19 14:19 Consult to Steam Station Supervisor Routine Comment: Discharge provider: Reginaldo Her PA-C Summary Discharge Diagnosis: Status post revision total hip arthroplasty Hospital Course: Patient brought to hospital on 04/13/2019 to have revision right total hip arthroplasty following antibiotic spacer. Patient remained stable postoperatively. Progressed with physical therapy well. Ready for discharge to home on postop day 1. Status at Discharge Cognitive/behavioral status at discharge: oriented Functional status at discharge: uses cane/walker Overall status at discharge: patient is progressing back to baseline Time Spent with Patient Less than 30 minutes Exam Vital Signs (past 8 hours): - 04/14/19 05:15 04/14/19 08:00 04/14/19 08:41 Temperature 98.0 F 97.9 F Pulse Rate 64 58 L Respiratory Rate 16 16 Blood Pressure 110/64 123/67 Pulse Oximetry 96 97 96 Fraction of Inspired Oxygen 21 Oxygen Delivery Method Room Air Oxygen Flow Rate 0 Narrative Exam Narrative: Alert, oriented no acute distress resting in chair. Legs. Hemovac to right leg in place with some drainage around the incision site. A wendy dressing to incisional area which is dry without signs of infection or inflammation. No calf pain or swelling. Pulses symmetrical. Objective Labs Result Diagrams: 04/14/19 05:02 Labs: Laboratory Results - last 24 hr 04/14/19 05:02 Hgb 9.8 L Hct 30.2 L Discharge Plan Discharge Plan Patient Disposition: Home Discharge comment: Discharge home after cleared by PT. Posterior total hip precautions x6 weeks postop. Discharge Med Rec/Prescriptions Prescriptions: New acetaminophen 325 mg Tablet 975 mg PO TID Qty: 30 RF: 0 aspirin 81 mg Tablet,Delayed Release (Dr/Ec) 81 mg PO BID Qty: 60 RF: 0 oxycodone 5 mg Tablet 5 mg PO Q3HR PRN (Reason: Pain, Moderate (4-6)) Qty: 30 RF: 0 Discontinued oxycodone 5 mg Tablet 5 mg PO Q4-6H PRN (Reason: Pain, Moderate (4-6)) Qty: 40 RF: 0 Follow up/Referrals: Elías Cooper [Primary Care Provider] - Provider Discharge Instructions Diet: Diet as Tolerated Activity: Ambulate as tolerated. Use walker as needed. Posterior total hip arthroplasty protocol x6 weeks postop. Cold/Heat Therapy: Cold pack to right hip as needed. Skin/Wound/Dressing Care Report to your healthcare provider any signs of infection, such as:: chills, fever, night sweats, increased pain, unusual drainage and unusual redness Visit Report/Discharge Packet Instructions: DI for Hip Replacement Discharge Data Primary Care Provider: Elías Cooper Attending Provider: Vesna Jessica Admit Date/Time: 04/13/19 05:47 Quality VTE Deep Vein Thrombosis/Pulmonary Embolism Present on Admission: No
[2019-04-14 12:00] VITALS: BP 104/61; PULSE 56; RESP 16; TEMP 36.5; O2SAT 97
--- NOTE | 2019-04-14 12:11 | CM.DANOTE ---
DCP/Assessment: Reviewed chart. Patient is a 54yr old male admitted to [facility] for right hip revision performed on 04-13-[address] Jessica. Pt. currently without PCP. Primary payor is 1)Medicare 2)[employer]. Met with patient explained CM/SW role. Patient alert and oriented, sitting in chair at time of visit. Patient expected to d/c home today. Patient reports that his friend Elías is picking him up at approximately 3:30pm. Patient reports that he has all needed DME in the residence. Patient had initial hip surgery in December 2018 at [facility]. Patient has no concerns about going home today and plans to follow up with Dr. Jessica as outpatient. Patient was not instructed on whether or not he needs to do outpatient PT? Patient seen by therapy at [facility] and cleared to d/c home. Patient plans to discuss with MD at first post-op appointment. P: Home today. Patient has all needed DME and denies any d/c planning needs. SWETHA Mata
== END 2019-04-14 15:12 | disposition home or self-care (01) | DRG 467 ==
PROVIDERS: Admitting Provider Orthopaedic Surgery; PCP Internal Medicine Infectious Disease; Visit Provider Orthopaedic Surgery
PROC: 0SPB08Z Removal of Spacer from Left Hip Joint, Open Approach (ICD-10-PCS; principal; 2019-04-13 07:45)
DX: Z47.32 Aftercare following explantation of hip joint prosthesis (principal); T84.59XA Infection and inflammatory reaction due to other internal joint prosthesis, initial encounter; F17.200 Nicotine dependence, unspecified, uncomplicated
CPT/HCPCS: 36415; 73502; 73552; 76000; 85014; 85018; 87070; 87075; 87176; 87205; 87801; 94760; 94762; 97110; 97161; C1776; C9290; J0171; J0690; J1100; J2250; J2274; J2405; J2704; J3010